=== PATIENT | male | born 1945 | race Caucasian/White ===

== ENCOUNTER 2017-05-15 13:22 | Inpatient (IN) | payer OTHER ==
--- NOTE | 2017-05-15 13:46 | EDPHY ---
H & P Smoking Status: Former smoker <HarperBryce Scotty - Last Filed: 05/15/17 15:27> <Lisa Lewis - Last Filed: 05/15/17 23:00> Time Seen by Provider: 05/15/17 13:33 HPI/ROS: Chief complaint. Bowel movement issues HPI. 71-year-old male presents emergency department with constipation and abdominal distention for 1 month. It seems to somewhat come and go. He has a laxative 2 days ago with some relief. He has occasional cramping. No vomiting. No fever. No urinary symptoms. No chest discomfort or trouble breathing. ROS Constitutional. no fever/chills, no weakness Eyes. no problems with vision ENT. no sore throat, no nasal drainage Cardiovascular. no chest pain Respiratory. no shortness of breath, no cough Abdominal. Abdominal distension without nausea vomiting. Constipation . no problems urinating MS. no calf pain/swelling, no neck/back pain, no joint pain Skin. no rash Lymph. no swollen glands Neuro. no headache, no dizziness, no difficulty walking or with speech (Bryce Saleem) Past Medical/Surgical History: Past medical history diabetes, congestive heart failure, lung surgery, hypertension (Bryce Saleem) Social History: , nonsmoker, no alcohol (Bryce Saleem) Physical Exam: General Appearance: Alert well-developed male no distress. Vital signs stable though O2 saturation 85% room air Eyes: Pupils equal and round no pallor or injection. ENT, Mouth: Mucous membranes are moist. Respiratory: There are no retractions, lungs are clear to auscultation. Cardiovascular: Regular rate and rhythm. Gastrointestinal: Abdomen is soft and nontender, no masses, bowel sounds normal. Neurological: Awake and alert, sensory and motor exams grossly normal. Skin: Warm and dry, no rashes. Musculoskeletal: Neck is supple nontender. Extremities symmetrical, full range of motion. Psychiatric: Patient is oriented X 3, there is no agitation. (Bryce Saleem) Constitutional: Initial Vital Signs Temperature (C) 36.7 C 05/15/17 13:26 Heart Rate 70 05/15/17 13:26 Respiratory Rate 20 05/15/17 13:26 Blood Pressure 151/87 H 05/15/17 13:26 O2 Sat (%) 85 L 05/15/17 13:26 O2 Delivery Mode Nasal Cannula O2 (L/minute) 3 Allergies/Adverse Reactions: No Known Allergies Allergy (Verified 05/15/17 13:23) Home Medications: Medication Instructions Recorded Amlodipine Besylate [Norvasc] 5 mg PO BID 05/15/17 Carvedilol [Coreg (*)] 25 mg PO DAILY 05/15/17 Furosemide [Lasix 20 MG (*)] 20 mg PO DAILY 05/15/17 Gabapentin [Neurontin 100 MG (*)] 100 mg PO BID 05/15/17 Gemfibrozil [Lopid 600 MG (*)] 600 mg PO BIDAC 05/15/17 Hydrochlorothiazide [HCTZ (*)] 12.5 mg PO DAILY 05/15/17 Insulin Aspart [novoLOG] 5 - 15 unit SC DAILY 05/15/17 Insulin Aspart [novoLOG] 25 unit SC DAILY@16 05/15/17 Insulin Glargine [Lantus 100 40 - 45 units SC HS 05/15/17 UNITS/ML (*)] LISINOPRIL [LISINOPRIL] 10 mg PO DAILY 05/15/17 clonIDINE [Catapres (*)] 0.1 mg PO BID 05/15/17 Medical Decision Making <Bryce Saleem S - Last Filed: 05/15/17 15:27> <Lisa Lewis - Last Filed: 05/15/17 23:00> - Diagnostics Imaging Results: Imaging Impressions Abdomen X-Ray 05/15/17 14:01 Impression: 1. Fluid-filled distended transverse colon. Gasless bowel pattern, cannot exclude small bowel obstruction. Chest X-Ray 05/15/17 14:01 Impression: Stable chest.. Abdomen/Pelvis CT 05/15/17 15:17 Impression: 1. Colonic obstruction at the level of the junction of splenic flexure with descending colon with bowel wall thickening worrisome for primary colonic malignancy. 2. Dilated colon proximal to the level of obstruction measuring up to 8 cm in diameter. 3. Multiple renal cystic-appearing structures which could be further evaluated with renal ultrasound as clinically indicated. 4. Spinal degenerative changes are noted. 5. See above report for additional findings. Results called and discussed with Lisa Lewis M.D. on 05/15/2017, at 1607 hours. The chest x-ray interpreted by me is normal Abdominal x-ray shows multiple air-fluid levels that would be consistent with small-bowel obstruction (Bryce Saleem) Procedures: IV normal saline (Bryce Saleem) ED Course/Re-evaluation: Re-evaluation at 3:15 p.m.. Patient is stable. Patient and I discussed imaging study results and the fact this appears to be small-bowel obstruction and not just constipation. Due to his elevated creatinine which is markedly more elevated than his baseline we will do a noncontrast CT of his abdomen and pelvis (Bryce Saleem) Differential Diagnosis: I considered constipation, small-bowel obstruction, abdominal aortic aneurysm ( Bryce Saleem) Other Provider: I assumed care of this patient from Dr. Saleem at change of shift, approximately 3:30 p.m.. I received a call from Dr. Joshi regarding the patient' s CT scan at 4:15 a.m.. Patient has a bowel obstruction with significantly dilated colon, up to 8 cm, with a suspicious looking lesion at the splenic flexure/descending colon junction. CT scan was explained and discussed with the patient. He understands that he needs to be admitted to the hospital. Surgical consult was obtained. 6:00 p.m.: I spoke to the hospitalist, the patient will be admitted to Dr. Toro. (Lisa Lewis) Care Turn Over: Dr. Lewis at 3:25 p.m. (Bryce Saleem) - Data Points Laboratory Results: Laboratory Results 05/15/17 13:49 05/15/17 13:49 05/15/17 05/15/17 05/15/17 13:49 13:49 13:49 WBC 7.98 10^3/uL 10^3/uL (3.80-9.50) RBC 5.13 10^6/uL 10^6/uL (4.40-6.38) Hgb 15.9 g/dL g/dL (13.7-17.5) Hct 48.5 % % (40.0-51.0) MCV 94.5 fL fL (81.5-99.8) MCH 31.0 pg pg (27.9-34.1) MCHC 32.8 g/dL g/dL (32.4-36.7) RDW 14.0 % % (11.5-15.2) Plt Count 160 10^3/uL 10^3/uL (150-400) MPV 10.3 fL fL (8.7-11.7) Neut % (Auto) 80.3 % H % (39.3-74.2) Lymph % (Auto) 8.5 % L % (15.0-45.0) Rush % (Auto) 7.3 % % (4.5-13.0) Eos % (Auto) 3.0 % % (0.6-7.6) Baso % (Auto) 0.4 % % (0.3-1.7) Nucleat RBC Rel Count 0.0 % % (0.0-0.2) Absolute Neuts (auto) 6.41 10^3/uL 10^3/uL (1.70-6.50) Absolute Lymphs (auto) 0.68 10^3/uL L 10^3/uL (1.00-3.00) Absolute Monos (auto) 0.58 10^3/uL 10^3/uL (0.30-0.80) Absolute Eos (auto) 0.24 10^3/uL 10^3/uL (0.03-0.40) Absolute Basos (auto) 0.03 10^3/uL 10^3/uL (0.02-0.10) Absolute Nucleated RBC 0.00 10^3/uL 10^3/uL (0-0.01) Immature Gran % 0.5 % % (0.0-1.1) Immature Gran # 0.04 10^3/uL 10^3/uL (0.00-0.10) Sodium 136 mEq/L mEq/L (134-144) Potassium 4.7 mEq/L mEq/L (3.5-5.2) Chloride 105 mEq/L mEq/L (97-110) Carbon Dioxide 19 mEq/l L mEq/l (22-31) Anion Gap 12 mEq/L mEq/L (8-16) BUN 81 mg/dL H mg/dL (7-23) Creatinine 2.5 mg/dL H mg/dL (0.7-1.3) Estimated GFR 26 Glucose 138 mg/dL H mg/dL (70-100) Calcium 8.9 mg/dL mg/dL (8.5-10.4) Troponin I < 0.012 ng/mL ng/mL (0-0.034) NT-Pro-B Natriuret Pep 776 pg/mL H pg/mL (0-125) Medications Given: Discontinued Medications Sodium Chloride (Ns) 1,000 mls @ 0 mls/hr IV ONCE ONE; Wide Open PRN Reason: Protocol Stop: 05/15/17 16:35 Last Admin: 05/15/17 16:48 Dose: 1,000 mls Departure <Bryce Saleem - Last Filed: 05/15/17 15:27> <Lisa Lewis - Last Filed: 05/15/17 23:00> - Departure Disposition: [facility] Inpatient Acute Clinical Impression: CKD (chronic kidney disease) Qualifiers: Chronic kidney disease stage: unspecified stage Qualified Code(s): N18.9 - Chronic kidney disease, unspecified Bowel obstruction Qualifiers: Intestinal obstruction type: unspecified Qualified Code(s): K56.60 - Unspecified intestinal obstruction Condition: Fair Report Scribed for: Lisa Lewis Report Scribed by: Estrella Domínguez Date of Report: 05/15/17 Time of Report: 18:07 <Lisa Lewis - Last Filed: 05/15/17 23:00>
[2017-05-15 14:01] LABS: % IMMATURE GRANULYOCYTES 0.5 % (0.0-1.1); ABSOLUTE IMMATURE GRANULOCYTES 0.04 10^3/uL (0.00-0.10); ADD DIFF? NO; ADD MORPH? NO; ADD SCAN? NO; ATYPICAL LYMPHOCYTE FLAG 0 (0-99); FRAGMENT RBC FLAG 0 (0-99); HEMATOCRIT 48.5 % (40.0-51.0); HEMOGLOBIN 15.9 g/dL (13.7-17.5); LEFT SHIFT FLG 0 (0-99); LIPEMIA HEMOLYSIS FLAG 80 (0-99); MEAN CELL HEMOGLOBIN CONCENTR. 32.8 g/dL (32.4-36.7); MEAN CELL VOLUME 94.5 fL (81.5-99.8); MEAN PLATELET VOLUME 10.3 fL (8.7-11.7); PLATELET CLUMPS FLAG 30 (0-99); PLATELET COUNT 160 10^3/uL (150-400); RED BLOOD CELL COUNT 5.13 10^6/uL (4.40-6.38)
[2017-05-15 14:22] LABS: ANION GAP 12 mEq/L (8-16); CALCIUM 8.9 mg/dL (8.5-10.4); CARBON DIOXIDE 19 mEq/l (22-31); CHLORIDE 105 mEq/L (97-110); CREATININE 2.5 mg/dL (0.7-1.3); GLOMERULAR FILTRATION RATE 26; GLUCOSE 138 mg/dL (70-100); POTASSIUM 4.7 mEq/L (3.5-5.2); SODIUM 136 mEq/L (134-144)
[2017-05-15] MEDS ORDERED: NS 1,000 ML IV ONE (16:34)
--- NOTE | 2017-05-15 18:24 | CPEKG ---
Heart Rate: 59 RR Interval: 1017 P-R Interval: 168 QRSD Interval: 104 QT Interval: 452 QTC Interval: 448 P [place]: 37 QRS [place]: 37 T Wave [place]: 35 EKG Severity - OTHERWISE NORMAL ECG - EKG Impression: SINUS RHYTHM EKG Impression: LOW VOLTAGE IN FRONTAL LEADS Electronically Signed By: Lisa Lewis 15-May-2017 21:21:19
[2017-05-15 18:37] LABS: TROPONIN I < 0.012 ng/mL (0-0.034)
--- NOTE | 2017-05-15 18:51 | PDGENHP ---
History Information - Allergies/Home Medication List Allergies/Adverse Reactions: No Known Allergies Allergy (Verified 05/15/17 13:23) Home Medications: Amlodipine Besylate [Norvasc] 5 mg PO BID 05/15/17 [Last Taken 05/15/17 1 tab] Carvedilol [Coreg (*)] 25 mg PO DAILY 05/15/17 [Last Taken 05/15/17] Furosemide [Lasix 20 MG (*)] 20 mg PO DAILY 05/15/17 [Last Taken 05/15/17] Gabapentin [Neurontin 100 MG (*)] 100 mg PO BID 05/15/17 [Last Taken Unknown] Gemfibrozil [Lopid 600 MG (*)] 600 mg PO BIDAC 05/15/17 [Last Taken 05/15/17 1 tab] Hydrochlorothiazide [HCTZ (*)] 12.5 mg PO DAILY 05/15/17 [Last Taken 05/15/17] Insulin Aspart [novoLOG] 5 - 15 unit SC DAILY 05/15/17 [Last Taken 05/15/17] Insulin Aspart [novoLOG] 25 unit SC DAILY@16 05/15/17 [Last Taken 05/14/17] Insulin Glargine [Lantus 100 UNITS/ML (*)] 40 - 45 units SC HS 05/15/17 [Last Taken 05/14/17] LISINOPRIL [LISINOPRIL] 10 mg PO DAILY 05/15/17 [Last Taken 05/15/17] clonIDINE [Catapres (*)] 0.1 mg PO BID 05/15/17 [Last Taken 05/15/17 1 tab] - Social History Smoking Status: Former smoker Physical Exam Temp Pulse Resp BP Pulse Ox 36.4 C 60 18 128/73 H 95 05/15/17 17:33 05/15/17 17:33 05/15/17 17:33 05/15/17 17:33 05/15/17 17:33 Lab Data & Imaging Review 05/15/17 13:49 05/15/17 13:49 WBC 7.98 10^3/uL (3.80-9.50) 05/15/17 13:49 RBC 5.13 10^6/uL (4.40-6.38) 05/15/17 13:49 Hgb 15.9 g/dL (13.7-17.5) 05/15/17 13:49 Hct 48.5 % (40.0-51.0) 05/15/17 13:49 MCV 94.5 fL (81.5-99.8) 05/15/17 13:49 MCH 31.0 pg (27.9-34.1) 05/15/17 13:49 MCHC 32.8 g/dL (32.4-36.7) 05/15/17 13:49 RDW 14.0 % (11.5-15.2) 05/15/17 13:49 Plt Count 160 10^3/uL (150-400) 05/15/17 13:49 MPV 10.3 fL (8.7-11.7) 05/15/17 13:49 Neut % (Auto) 80.3 % (39.3-74.2) H 05/15/17 13:49 Lymph % (Auto) 8.5 % (15.0-45.0) L 05/15/17 13:49 [place] % (Auto) 7.3 % (4.5-13.0) 05/15/17 13:49 Eos % (Auto) 3.0 % (0.6-7.6) 05/15/17 13:49 Baso % (Auto) 0.4 % (0.3-1.7) 05/15/17 13:49 Nucleat RBC Rel Count 0.0 % (0.0-0.2) 05/15/17 13:49 Absolute Neuts (auto) 6.41 10^3/uL (1.70-6.50) 05/15/17 13:49 Absolute Lymphs (auto) 0.68 10^3/uL (1.00-3.00) L 05/15/17 13:49 Absolute Monos (auto) 0.58 10^3/uL (0.30-0.80) 05/15/17 13:49 Absolute Eos (auto) 0.24 10^3/uL (0.03-0.40) 05/15/17 13:49 Absolute Basos (auto) 0.03 10^3/uL (0.02-0.10) 05/15/17 13:49 Absolute Nucleated RBC 0.00 10^3/uL (0-0.01) 05/15/17 13:49 Immature Gran % 0.5 % (0.0-1.1) 05/15/17 13:49 Immature Gran # 0.04 10^3/uL (0.00-0.10) 05/15/17 13:49 Sodium 136 mEq/L (134-144) 05/15/17 13:49 Potassium 4.7 mEq/L (3.5-5.2) 05/15/17 13:49 Chloride 105 mEq/L (97-110) 05/15/17 13:49 Carbon Dioxide 19 mEq/l (22-31) L 05/15/17 13:49 Anion Gap 12 mEq/L (8-16) 05/15/17 13:49 BUN 81 mg/dL (7-23) H 05/15/17 13:49 Creatinine 2.5 mg/dL (0.7-1.3) H 05/15/17 13:49 Estimated GFR 26 05/15/17 13:49 Glucose 138 mg/dL (70-100) H 05/15/17 13:49 Calcium 8.9 mg/dL (8.5-10.4) 05/15/17 13:49 Troponin I < 0.012 ng/mL (0-0.034) 05/15/17 13:49 NT-Pro-B Natriuret Pep 776 pg/mL (0-125) H 05/15/17 13:49 Assessment & Plan Assessment: Bowel obstruction (Acute) CKD (chronic kidney disease) (Acute)
[2017-05-15] MEDS ORDERED: D50W 25 GM/50 ML SYR IVP PRN (21:14)
[2017-05-15] MEDS ORDERED: ACETAMINOPHEN 325 MG TAB PO PRN (21:38)
[2017-05-15] MEDS ORDERED: TEMAZEPAM 15 MG CAP PO PRN (21:38)
[2017-05-15] MEDS ORDERED: ONDANSETRON DISINTEGRATING 4 MG TAB PO PRN (21:38)
[2017-05-15] MEDS ORDERED: ONDANSETRON 4 MG/2 ML VIAL IVP PRN (21:38)
[2017-05-15] MEDS ORDERED: NS 1,000 ML IV SCH (21:45)
[2017-05-15] MEDS: HYDROCODONE/APAP 5/325 TAB PO PRN (22:12)
--- NOTE | 2017-05-15 22:48 | GHP ---
[f rep st] HISTORY AND PHYSICAL DATE OF ADMISSION: 05/15/2017 CHIEF COMPLAINT: Constipation. HISTORY OF PRESENT ILLNESS: This is a 71-year-old man with multiple medical problems, who presents with several weeks to a month worth of GI issues. This is associated with worsening abdominal diste ntion, some constipation. He took Mag citrate a few days ago with profuse diarrhea. Before this, azra villa notes that his stools were narrow in caliber, somewhat pencil-like. He has had some nausea but no vomiting. He has had some pain with the distention, which is better with [place]. He has not had a colonoscopy in the past. He has a reported history of CHF as well as chronic kidney disease. He tells me his baseline creati nine is about 1.7. He is able to ambulate but walking a quarter mile would be very difficult. He s ometimes gets short of breath walking across the room. PAST MEDICAL/SURGICAL HISTORY: 1. History of CHF, though no echoes in our system show CHF. 2. Chronic kidney disease. Reported baseline creatinine about 1.7. 3. Hypertension. 4. Diabetes mellitus. 5. 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 6. Knee surgery. 7. CT with thoracoscopy in 2004. 8. Group A strep infection, status post debridement. 9. Cataract surgery. MEDICATIONS: Please see medication reconciliation. ALLERGIES: No known drug allergies. SOCIAL HISTORY: He lives with his . Does not drink or smoke. He quit smoking in his 40s. FAMILY HISTORY: No colon cancer. REVIEW OF SYSTEMS: 10-point Review of Systems is conducted and is negative except per HPI. PHYSICAL EXAM: VITAL SIGNS: Blood pressure 116/68, heart rate 59, respiration rate 16, saturating 88% on room air. Temperature is 36.4. GENERAL: The patient is a very pleasant 71-year-old man, wh o appears comfortable, in no acute distress. HEENT: Shows him to be normocephalic, atraumatic. CA RDIOVASCULAR: Regular rate and rhythm. He has a 2/6 systolic murmur. PULMONARY: Lungs clear to a uscultation bilaterally. He is not in any respiratory distress. ABDOMINAL: Shows him to be quite distended with relatively firm abdomen. It is not really very tender to palpation, however. SKIN: No rash. : No Rodriguez. NEUROLOGIC: Shows him to be alert and oriented x3. He is moving all ext remities. PSYCHIATRIC: Shows normal mood and affect. LABS: CBC is normal. Creatinine is 2.5, BUN is 81, bicarb is 19. BNP is 776. Troponin is negativ e. DATA: 1. I reviewed his chart. 2. I discussed this Dr. Lewis in the emergency department. 3. EKG, which I personally viewed and interpreted, shows sinus rhythm. He does not have any Q-wave s in continuous leads. Overall, it is a nonischemic EKG. 4. CT abdomen and pelvis shows colonic obstruction at the level of the splenic flexure with bowel w all thickening, dilated colon up to 8 cm. 5. Chest x-ray, which is stable. I personally viewed and interpreted this. IMPRESSION/PLAN: A 71-year-old male with multiple medical problems, presents with colon obstruction concerning for malignancy. 1. Colon obstruction: He has seen Dr. Munoz in the past. He has seen Dr. Hines here today. My understanding is that Dr. Munoz will take him to surgery for a hemicolectomy tomorrow. In terms of perioperative risk, he is certainly a high-risk for surgery, though I do not see any good options . I think he is a little dry, so I will hydrate him overnight and recheck his kidney function. We will check an echocardiogram tomorrow to evaluate his cardiac function. Make him n.p.o. after midni ght. We will control his pain with both IV and oral narcotics. 2. Chronic kidney disease: I think that he is slightly above his baseline potentially due to prere nal state. We will slowly hydrate him and recheck his creatinine in the morning. 3. Reported congestive heart failure: Last echo here in 2011 was normal. He has seen Cardiology b ut not in the recent past and I do not find any records in [place]. Will check another echocardiog guillermo. I would like this to be done prior to his operation. 4. Diabetes mellitus: I will give him low-dose glargine tonight as he will be n.p.o. for the entir e day tomorrow. He normally takes 40-45. I will also place him on sliding scale insulin. Check q. 6 glucoses. 5. Hypertension: We will hold his amlodipine for now. Continue his Coreg and morning clonidine, w ill need to decide on his afternoon clonidine. Hold his hydrochlorothiazide. 6. Hypoxia: I suspect that this is more chronic than acute. Initial chest x-ray not terribly reve aling. 7. Acidosis: Likely due to renal failure. Recheck tomorrow. 8. Code status is full. 9. Venous thromboembolism risk is high; however, I will hold Lovenox with surgery pending for vida valentin. /[id number]/MODL
[2017-05-16] MEDS: HYDROCODONE/APAP 5/325 TAB PO PRN (02:08)
--- NOTE | 2017-05-16 04:33 | GCON ---
[f rep st] CONSULTATION DATE OF CONSULTATION: 05/15/2017 CHIEF COMPLAINT: Abdominal distention. HISTORY OF PRESENT ILLNESS: 71-year-old male with complex past medical history, presents with about a month long history of worsening abdominal distention, constipation, and obstipation. Per the lissa chow's report, he really states that since his initial diagnosis with diabetes in 2005 he has had in creasing abdominal circumference acutely worsening over about the past month since that time. He st ates that his belly has always been fairly rotund but getting more distended lately. He did attempt to take some [id number]-[id number] laxatives for the past 2 days with minimal results. He did endorse h aving some fairly loose stools today after magnesium citrate last evening, but that he still continu es to have maybe every other day bowel movements, that they are loose, typically liquid, and that he is not passing as much flatus as he used to, although he continues to do so daily. He denies havin g any nausea vomiting, fevers, or chills. He does state that it feels as though his abdomen is push ing on his chest, which does make breathing sometimes difficult. He really denies having any pain a nd is here mainly because of his abdominal distention. In the emergency department, he has had mult iple imaging, including a plain film, which showed fairly dilated colon and a CT scan, which showed a worrisome stricture at the splenic flexure worrisome for possible cancer. He denies having any re cent weight loss. He denies having any blood per rectum and has never had a colonoscopy. PAST MEDICAL HISTORY: Insulin-dependent diabetes, congestive heart failure, chronic kidney disease, hypertension, and idiopathic cardiomyopathy. 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 CURRENT MEDICATIONS: Reviewed in [employer]. ALLERGIES: None. FAMILY HISTORY: No known family history of any colon cancers. SOCIAL HISTORY: Former smoker. Retired. REVIEW OF SYSTEMS: A full 10-point review was performed, and unless explicitly stated above, is oth erwise negative. PHYSICAL EXAMINATION: VITAL SIGNS: Temperature 36.4, heart rate 91, blood pressure 128/73, he is 9 5% on 3 L nasal cannula, and his respiratory rate is 18. CONSTITUTIONAL: No apparent distress, obe se. EYES: Pupils are equal, round, and reactive to light with anicteric sclerae. EARS, NOSE, MOUT H, AND THROAT: Dry mucous membranes. No oral mucosal ulcers. CV: Regular rate and rhythm. No mu rmurs appreciated. RESPIRATORY: No respiratory distress. His lungs are clear to auscultation bila terally. GI: His abdomen is distended, tympanitic. No rebound tenderness or guarding. Minimally tender. No masses appreciated. SKIN: Warm and normal color. SKIN: Full muscle strength without muscular tenderness. NEUROLOGIC: He is alert and oriented x3 without any weakness. PSYCH: Intera cting appropriately with normal affect. LYMPH: No appreciable palpable lymphadenopathy. LABORATORY DATA: Which were personally reviewed, white count of 7, H and H of 16 and 48, creatinine of 2.5, blood sugar 138. IMAGING DATA: Which was personally reviewed and interpreted include a plain film of the chest, a pl ain film of the abdomen, and a CT abdomen and pelvis. Chest x-ray, to my read, shows prominent hear t with no focal infiltrates. Abdominal x-ray shows fairly dilated colon loops without any intraperi toneal free air. CT scan of the abdomen and pelvis shows a worrisome stricture just distal to the s plenic flexure. It does not appear to be complete. No pneumoperitoneum appreciated. ASSESSMENT AND PLAN: 71-year-old male with multiple medical problems, presenting with what appears to be an acute on chronic large bowel obstruction. I had a long discussion with the patient in the emergency department today discussing his imaging, labs, and exam findings. I did tell him that it is worrisome given the fact that he has never had a colonoscopy that this likely represents a colon cancer and in my mind is that until proven otherwise. He was a little hesitant to take this diagnos is but understood that he had some worrisome imaging and exam findings. I did tell him that you kno w more than likely no matter what this was he would likely need operation as it is near obstructing, and regardless of the diagnosis of benign or malignant, will require surgical exploration and extir pation. He understood this. I have asked the medicine physicians to be involved as the patient has multiple medical problems, and I want to make sure that he is in optimal state for surgery. I did tell the patient that although he does not need emergent operative exploration tonight that he does need exploration within the next 24 hours to remove this near obstructing lesion, and that gives us some time to make sure that he is medically optimized prior to doing so. He understands this. We w ill plan to proceed with admission, n.p.o. Status, gentle hydration tonight with planned exploration in the operating room tomorrow. /[id number]/MODL
[2017-05-16 05:11] LABS: % IMMATURE GRANULYOCYTES 0.4 % (0.0-1.1); ABSOLUTE IMMATURE GRANULOCYTES 0.02 10^3/uL (0.00-0.10); ADD DIFF? NO; ADD MORPH? NO; ADD SCAN? NO; ATYPICAL LYMPHOCYTE FLAG 0 (0-99); FRAGMENT RBC FLAG 0 (0-99); HEMATOCRIT 44.5 % (40.0-51.0); HEMOGLOBIN 14.4 g/dL (13.7-17.5); LEFT SHIFT FLG 0 (0-99); LIPEMIA HEMOLYSIS FLAG 80 (0-99); MEAN CELL HEMOGLOBIN 30.7 pg (27.9-34.1); MEAN CELL HEMOGLOBIN CONCENTR. 32.4 g/dL (32.4-36.7); MEAN CELL VOLUME 94.9 fL (81.5-99.8); MEAN PLATELET VOLUME 9.9 fL (8.7-11.7); PLATELET CLUMPS FLAG 0 (0-99); PLATELET COUNT 126 10^3/uL (150-400); RED BLOOD CELL COUNT 4.69 10^6/uL (4.40-6.38)
[2017-05-16 05:27] LABS: ALANINE AMINOTRANSFERASE 32 IU/L (21-72); ALKALINE PHOSPHATASE 70 IU/L (38-126); ANION GAP 10 mEq/L (8-16); ASPARTATE AMINOTRANSFERASE 20 IU/L (17-59); BILIRUBIN,TOTAL 0.7 mg/dL (0.1-1.4); CALCIUM 8.6 mg/dL (8.5-10.4); CARBON DIOXIDE 18 mEq/l (22-31); CHLORIDE 111 mEq/L (97-110); CREATININE 2.2 mg/dL (0.7-1.3); GLOMERULAR FILTRATION RATE 30; GLUCOSE 114 mg/dL (70-100); POTASSIUM 4.5 mEq/L (3.5-5.2); SODIUM 139 mEq/L (134-144); TOTAL PROTEIN 5.8 g/dL (6.3-8.2)
[2017-05-16] MEDS: GABAPENTIN 100 MG CAP PO SCH ×2 (09:10→21:58)
[2017-05-16] MEDS: CARVEDILOL 25 MG TAB PO SCH (09:11)
[2017-05-16] MEDS: LISINOPRIL 5 MG TAB PO SCH (09:11)
--- NOTE | 2017-05-16 09:48 | ECHO ---
[id number] + + [address] : : [place] [address] : : [phone] + Adult Echocardiographic Report + -------+ :Name: ALDEN BLANCHARD GStudy Date: 05/16/2017 08:04 AM : : Hospital Admission Number: [id number] Locati on: 253: :: 1945 Gender: Male Height: 71 in : :Age: 71 yrs Race: WH Weight: 256 lb : :Reason For Study: Eval LV Fx : : BSA: 2.3 meter s2 : :History: Bowel obstruction, Kidney disease : + -------+ MMode/2D Measurements \T\ Calculations IVSd: 1.2 cm LVIDd: 5.1 cm FS: 41.6 % Ao root diam: 2.9 cm LVPWd: 1.6 cm LVIDs: 3.0 cm EDV(Teich): 123.0 ml ACS: 2.1 cm ESV(Teich): 34.1 ml EF(Teich): 72.3 % Normal Measurement Values: + + :LVIDd (3.5-5.7cm) IVSd (0.6-1.1cm) LVPWd (0.6-1.1cm) Aortic Root (2.0-3.7cm)Left Atrium (1.5-4.0cm): :LV Vol(d) (76-115ml) LV Vol(s) (29-48ml) Ejec Fraction (50-65%)PV Yohan (0.6- 1.2m/s) TV Yohan (0.4-1.0m/s) : :MV E Yohan (0.8-1.0m/s)MV A Yohan (0.3-1.0m/s)LVOT Yohan (0.7-1.2m/s) Asc Ao Yohan ( 0.9-1.8m/s) : + + Doppler Measurements \T\ Calculations MV E max yohan: Ao V2 max: LV V1 max: PA V2 max: 65.6 cm/sec 129.0 cm/sec 74.5 cm/sec 81.4 cm/sec MV A max yohan: Ao max P.7 mmHg LV V1 max PG: PA max P.4 cm/sec 2.2 mmHg 2.7 mmHg MV E/A: 0.75 Left Ventricle The left ventricle is normal in size. There is mild to moderate concentric left ventricular hypertrophy. The left ventricular ejection fraction is normal. There is Doppler evidence for diastolic dysfunction. Ejection Fraction = 72%. The left ventricular wall motion is normal. Right Ventricle The right ventricle is normal in size and function. Atria The left atrial size is normal. Right atrial size is normal. Mitral Valve The mitral valve is normal in structure and function. There is no mitral valve stenosis. There is no mitral regurgitation noted. Tricuspid Valve Normal tricuspid valve. There is trace tricuspid regurgitation. Right ventricular systolic pressure is normal. Aortic Valve The aortic valve is normal in structure and function. There is no aortic stenosis. There is no aortic insufficiency. Pulmonic Valve The pulmonic valve is normal in structure and function. There is no pulmonic valvular regurgitation. Great Vessels The aortic root is normal size. Pericardium/Pleural There is no pericardial effusion. Conclusion A complete two-dimensional transthoracic echocardiogram was performed (2D, M-mode, Doppler and color flow Doppler). There is mild to moderate concentric left ventricular hypertrophy. The left ventricular ejection fraction is normal. There is Doppler evidence for diastolic dysfunction. Ejection Fraction = 72%. The left ventricular wall motion is normal. The right ventricle is normal in size and function. The left atrial size is normal. Right atrial size is normal. The mitral valve is normal in structure and function. There is trace tricuspid regurgitation. Right ventricular systolic pressure is normal. The aortic valve is normal in structure and function. There is no pericardial effusion. Final Reading Physician: Merline Katz signed on 05/16/2017 09:47 AM Ordering Physician: Stone Toor Performed By: Alonzo Lee, CS
[2017-05-16] MEDS: INSULIN LISPRO 100 UNIT/ML SC SCH ×4 (10:51→18:44)
[2017-05-16] MEDS ORDERED: BUPIVACAINE/EPI 0.25% 30 ML SDV ONE (11:42)
--- NOTE | 2017-05-16 11:53 | PDANEPAE ---
ANE History of Present Illness large bowel obstruction ANE Past Medical History - Cardiovascular History Hx Hypertension: Yes Hx CHF / Valvular Disease: Yes - Pulmonary History Hx COPD: No Hx Asthma/Reactive Airway Disease: No Hx Recent Upper Respiratory Infection: No Hx Oxygen in Use at Home: No - Endocrine History Hx Diabetes: Yes - Chronic Pain History Chronic Pain: Yes ANE Review of Systems - Exercise capacity METS (RN): 2 METS ANE Patient History - Allergies Allergies/Adverse Reactions: No Known Allergies Allergy (Verified 05/15/17 13:23) - Home Medications Home medications: home medication list seen and reviewed Home Medications: Amlodipine Besylate [Norvasc] 5 mg PO BID 05/15/17 [Last Taken 05/15/17 1 tab] Carvedilol [Coreg (*)] 25 mg PO DAILY 05/15/17 [Last Taken 05/15/17] Furosemide [Lasix 20 MG (*)] 20 mg PO DAILY 05/15/17 [Last Taken 05/15/17] Gabapentin [Neurontin 100 MG (*)] 100 mg PO BID 05/15/17 [Last Taken Unknown] Gemfibrozil [Lopid 600 MG (*)] 600 mg PO BIDAC 05/15/17 [Last Taken 05/15/17 1 tab] Hydrochlorothiazide [HCTZ (*)] 12.5 mg PO DAILY 05/15/17 [Last Taken 05/15/17] Insulin Aspart [novoLOG] 5 - 15 unit SC DAILY 05/15/17 [Last Taken 05/15/17] Insulin Aspart [novoLOG] 25 unit SC DAILY@16 05/15/17 [Last Taken 05/14/17] Insulin Glargine [Lantus 100 UNITS/ML (*)] 40 - 45 units SC HS 05/15/17 [Last Taken 05/14/17] LISINOPRIL [LISINOPRIL] 10 mg PO DAILY 05/15/17 [Last Taken 05/15/17] clonIDINE [Catapres (*)] 0.1 mg PO BID 05/15/17 [Last Taken 05/15/17 1 tab] - NPO status NPO Since - Liquids (Date): 05/16/17 NPO Since - Liquids (Time): 09:25 NPO Since - Solids (Date): 05/15/17 NPO Since - Solids (Time): 21:40 - Anes Hx Anes Hx: no prior problems - Smoking Hx Smoking Status: Former smoker - Family Anes Hx Family Anes Hx: none ANE Labs/Vital Signs - Labs Result Diagrams: 05/16/17 04:45 05/16/17 04:45 - Vital Signs Blood Pressure: 136/67 Heart Rate: 62 Respiratory Rate: 16 O2 Sat (%): 93 Height: 180.34 cm Weight: 116.12 kg ANE Physical Exam - Airway Neck exam: FROM Mallampati Score: Class 2 Mouth exam: normal dental/mouth exam - Pulmonary Pulmonary: no respiratory distress - Cardiovascular Cardiovascular: no murmur, rub, or gallop - ASA Status ASA Status: IV ANE Anesthesia Plan Anesthesia Plan: general endotracheal anesthesia (discussed epidural - patient would like to defer)
[2017-05-16] MEDS ORDERED: MIDAZOLAM 2 MG/2 ML VIAL IVP ONE (11:55)
[2017-05-16] MEDS ORDERED: MIDAZOLAM 2 MG/2 ML VIAL ONE (11:57)
[2017-05-16] MEDS ORDERED: fentaNYL 100 MCG/2 ML INJ ONE ×4 (12:00→16:12)
[2017-05-16] MEDS ORDERED: HYDROmorphONE/DILAUDID 2 MG/ML INJ ONE (12:00)
[2017-05-16] MEDS ORDERED: NS 1,000 ML IV ONE (12:08)
[2017-05-16] MEDS ORDERED: ERTAPENEM 1 GM in NS 100 ML IV ONE (12:13)
--- NOTE | 2017-05-16 12:19 | PDHPUP ---
History & Physical Update H&P update statement: This history and physical update is based on an assessment of the patient which was completed after admission or registration (within 24 hours), but prior to the surgery/procedure. H&P update: H&P reviewed & patient examined, no change in patient's condition since H&P completed
[2017-05-16] MEDS ORDERED: BACITRACIN 50,000 UNITS/10 ML SYR IRR ONE (14:19)
--- NOTE | 2017-05-16 15:18 | POSTOPPROG ---
Post Op Note Date of Operation: 05/16/17 Surgeon: Jason Hines Lap Cutter: MD Bobby Anesthesiologist: Bethany Anesthesia: GET(General Endotracheal) Pre-op Diagnosis: obstructing colon mass, splenic flexure Post-op Diagnosis: same Procedure: ex-lap, splenic flexure mobilization, L colectomy Findings: tight stricture, appeared malignant. No mets identified. Side to side mosis Inf/Abcess present in the surg proc area at time of surgery?: No EBL: 100-500 Total fluids administered: 3000cc Bacitracin irrigant Specimen(s): L colon
[2017-05-16] MEDS ORDERED: NALOXONE HCL 0.4 MG/ML INJ IVP PRN (15:19)
--- NOTE | 2017-05-16 15:24 | POSTANESTH ---
Post Anesthetic Evaluation Cardiovascular Status: Normal, Stable Respiratory Status: Normal, Stable Level of Consciousness/Mental Status: Can Participate in Eval Pain Control: Adequate, Prn Tx Ordered Nausea/Vomiting Control: Adequate, Prn Tx Ordered Complications Possibly Related to Anesthesia: None Noted
[2017-05-16] MEDS: fentaNYL 100 MCG/2 ML INJ IVP PRN ×6 (15:39→16:36)
--- NOTE | 2017-05-16 16:33 | HOSPPROG ---
Hospitalist Progress Note Assessment/Plan: 71 yo male presenting with abdominal distention and constipation, found to have nearly obstructing colon mass. Bronson-colectomy today. Pt in OR all day and no face to face visit by me. Reviewed chart. Colon mass - per op note, appeared malignant. Will need oncology consult. H/O HF - nl EF on echo. CKD - baseline Cr 1.7. Was 2.5 on admission, down to 2.2 this am after IV hydration overnight. Check ua, urine pro:cr Metabolic acidosis - suspect secondary to CKD. Start oral NaHCO3. DM - bg's around 100 on low dose lantus and SSI. Resume outpt lantus dose when eating better. Hypertension - fairly well controlled, cont coreg, lisinopril, clonidine. Holding HCTZ. Hypoxemia - ?chronic. Full code DVT PPLX - start Lovenox when 24 hrs post-op and ok with surg. SCD's for now Dispo - cont inpt Subjective: Pt in OR all day. Objective: Vital Signs Temp Pulse Resp BP Pulse Ox 36.0 C 64 16 141/60 H 93 05/16/17 15:29 05/16/17 12:19 05/16/17 12:19 05/16/17 12:19 05/16/17 12:19 Laboratory Results 05/16/17 04:45 05/16/17 04:45 05/15/17 05/16/17 05/17/17 05:59 05:59 05:59 Intake Total 1000 Output Total 950 Balance 50 ICD10 Worksheet Patient Problems: Problems Problem Status Onset Bowel obstruction Acute CKD (chronic kidney disease) Acute
[2017-05-16] MEDS: HYDROmorphONE/DILAUDID 6 MG/30 ML PCA IV PRN (17:28)
[2017-05-16] MEDS: D5W NS 1,000 ML IV SCH (18:21)
[2017-05-16 18:50] LABS: COLOR YELLOW; LEUKOCYTE ESTERASE,URINE NEGATIVE (NEGATIVE); NITRITE,URINE NEGATIVE (NEGATIVE)
[2017-05-16 19:02] LABS: BACTERIA 1+ /hpf (NONE SEEN); MUCUS TRACE /lpf (NONE-1+); RBC,URINE 15-25 /hpf (0-3)
[2017-05-16 19:16] LABS: RANDOM URINE PROTEIN 86 mg/dL (0-11)
[2017-05-16] MEDS ORDERED: INSULIN GLARGINE 100 UNITS/ML SYRINGE SC SCH (21:00)
[2017-05-17] MEDS: INSULIN LISPRO 100 UNIT/ML SC SCH ×4 (02:01→17:53)
[2017-05-17] MEDS: D5W NS 1,000 ML IV SCH (05:22)
--- NOTE | 2017-05-17 07:47 | SOAPPROG ---
SOAP Progress Note Assessment/Plan: Assessment/Plan: - 71 M POD#1 s/p ex-lap, colectomy - Pain controlled with DPCA, cont this. Otherwise neuro intact - On supplemental O2 c NC, wean as tolerates - HDS - Abdomen soft, aTTP, incision covered with clean dressing from OR, will change tomorrow - UOP has been adequate, met panel pending this AM - Hb pending, needs LMWH proph - Dispo: OOBTC and ambulate. Start sips of chips and clears today. 05/17/17 07:45 Subjective: sleepy, pain is controlled. Denies nausea Objective: Vital Signs Temp Pulse Resp BP Pulse Ox 36.5 C 77 17 102/45 L 76 L 05/17/17 04:00 05/17/17 06:00 05/17/17 06:00 05/17/17 06:00 05/17/17 06:00 Laboratory Results 05/16/17 04:45 05/16/17 04:45 05/16/17 05/17/17 05/18/17 05:59 05:59 05:59 Intake Total 1000 4400 Output Total 950 835 Balance 50 3565 ICD10 Worksheet Patient Problems: Problems Problem Status Onset Bowel obstruction Acute CKD (chronic kidney disease) Acute
[2017-05-17 08:26] LABS: HEMATOCRIT 44.5 % (40.0-51.0); HEMOGLOBIN 14.5 g/dL (13.7-17.5); MEAN CELL HEMOGLOBIN 31.1 pg (27.9-34.1); MEAN CELL HEMOGLOBIN CONCENTR. 32.6 g/dL (32.4-36.7); MEAN CELL VOLUME 95.5 fL (81.5-99.8); RED BLOOD CELL COUNT 4.66 10^6/uL (4.40-6.38); RED CELL DISTRIBUTION WIDTH 14.2 % (11.5-15.2)
[2017-05-17] MEDS: LISINOPRIL 5 MG TAB PO SCH (08:34)
[2017-05-17] MEDS: GABAPENTIN 100 MG CAP PO SCH ×2 (08:34→20:29)
[2017-05-17] MEDS: ERTAPENEM 1 GM in NS 100 ML IV SCH (08:39)
[2017-05-17 09:58] LABS: ANION GAP 8 mEq/L (8-16); CALCIUM 8.6 mg/dL (8.5-10.4); CARBON DIOXIDE 19 mEq/l (22-31); CHLORIDE 116 mEq/L (97-110); CREATININE 2.1 mg/dL (0.7-1.3); GLOMERULAR FILTRATION RATE 31; GLUCOSE 196 mg/dL (70-100); POTASSIUM 5.4 mEq/L (3.5-5.2); SODIUM 143 mEq/L (134-144)
--- NOTE | 2017-05-17 10:12 | HOSPPROG ---
Hospitalist Progress Note Assessment/Plan: 71 yo male presenting with abdominal distention and constipation, found to have nearly obstructing colon mass. Bronson-colectomy today. Pt in OR all day and no face to face visit by me. Reviewed chart. Colon mass - per op note, appeared malignant. Path pending. Will need oncology consult, surgery to pursue. H/O HF - nl EF on echo. Appears euvolemic. On IVF's while NPO. Watch volume status closely. HERBIE / CKD - baseline Cr 1.7. Was 2.5 on admission, down to 2.1 this am after IV hydration. Spot urine pro:Cr ratio 934, non-nephrotic range proteinuria. Hyperkalemia - K 5.4 this am in setting of elevated Cr and acidosis. Given NaHCO3. Will recheck this afternoon. Hold Lisinopril for now. Metabolic acidosis - suspect secondary to CKD. Start oral NaHCO3. DM - Currently NPO, D5 added to fluids due to lowish bg's. Holding Lantus while NPO, will resume when eating better. Q6H bg's and SSI coverage. Hypertension - fairly well controlled, cont coreg, clonidine. Holding HCTZ with HERBIE. Holding Lisinopril due to elevated potassium. Hypoxemia - ?chronic. Likely has poor diaphragm excursion with post-op pain. He has apparently been recommended to have home O2 in the past and has declined. On 3 LPM. Wean as able. Full code DVT PPLX - MEDARDO Dispo - cont inpt Subjective: When asked how he is doing, pt states "I'm alive". He complains of some abdominal pain around incision. No fevers. No N/V. No BM. Objective: Vital Signs Temp Pulse Resp BP Pulse Ox 37.1 C 80 20 111/44 L 90 L 05/17/17 08:00 05/17/17 08:00 05/17/17 08:00 05/17/17 08:00 05/17/17 08:00 Laboratory Results 05/17/17 08:17 05/16/17 05/17/17 05/18/17 05:59 05:59 05:59 Intake Total 1000 4400 Output Total 950 835 Balance 50 3565 - Physical Exam Constitutional: no apparent distress Eyes: PERRL Ears, Nose, Mouth, Throat: moist mucous membranes Cardiovascular: regular rate and rhythym Respiratory: no respiratory distress, reduced air movement Gastrointestinal: other (soft, mild distention, appropriate TTP, no r/r/g, absent BS) Skin: warm Musculoskeletal: full muscle strength Neurologic: AAOx3 Psychiatric: interacting appropriately ICD10 Worksheet Patient Problems: Problems Problem Status Onset Bowel obstruction Acute CKD (chronic kidney disease) Acute
[2017-05-17] MEDS ORDERED: D5W 1/2 NS 1,000 ML IV SCH (10:15)
[2017-05-17] MEDS ORDERED: SODIUM BICARBONATE 50 MEQ/50 ML SYR IVP ONE ×2 (10:15→19:00)
[2017-05-17] MEDS: CARVEDILOL 25 MG TAB PO SCH (11:13)
[2017-05-17] MEDS ORDERED: HEPARIN 20,000 UNIT/ML VIAL SC SCH (12:12)
[2017-05-17] MEDS: HYDROmorphONE/DILAUDID 6 MG/30 ML PCA IV PRN (12:27)
--- NOTE | 2017-05-17 14:08 | GOP ---
[f rep st] OPERATIVE REPORT DATE OF OPERATION: 05/16/2017 SURGEON: Jason Hines MD JUMPBASTING COLLAR BASTER: Deepthi Rosales MD, who is requested for timely completion of this case. ANESTHESIA: General endotracheal. ANESTHESIOLOGIST: Dr. Mannie Sims. PREOPERATIVE DIAGNOSIS: Near-obstructing colon mass. POSTOPERATIVE DIAGNOSIS: Near-obstructing colon mass. PROCEDURE PERFORMED: 1. Exploratory laparotomy. 2. Mobilization of splenic flexure. 3. Partial left-sided left colectomy with [id number] functional end-to-end anastomosis. FINDINGS: Mass in the left colon. Did appear malignant. Successfully mobilized. Removed with healthy margin. [id number] functional end-to-end anastomosis performed. Common colotomy, hand-sewn. SPECIMENS: Left colon. ESTIMATED BLOOD LOSS: 250 mL. DESCRIPTION OF PROCEDURE: The patient was greeted in the preoperative suite. Once again, risks, benefits, and alternatives were discussed. Consent was signed. He was then brought back to the operative suite, placed on the OR table in a supine position. Antibiotics were given on-call to the operating room. After successful induction of general anesthesia, a World Health Organization time-out was performed. The patient's abdomen was then prepped and draped in typical sterile fashion. I entered the abdomen via a vertical midline incision. I carried this down through the subcutaneous tissue and entered the abdomen sharply. The incision was then increased to just below the xiphoid and just below the umbilicus. I eviscerated the small bowel and set it off to the side. I turned my attention towards the colon. I could feel the mass in question, which was consistent with preoperative imaging. I turned my attention toward mobilizing the descending colon via the white line of Toldt up to the splenic flexure. In the same fashion, I mobilized the proximal transverse colon off the greater omentum , entering the lesser sac. After this was done, again, the left colon was fairly densely adherent in the left upper quadrant. I divided the transverse colon proximally with a single fire of the Endo-DELLA 75 blue load stapler. I divided the mesentery lateral to this all the way up into the splenic flexure. The same was done distally. I selected a site on the descending colon successfully divided it and divided the mesentery up to it using the LigaSure energy device. It was successfully amputated from its retroperitoneal attachments and passed off the back table. Inspection showed that there was a focal mass consistent with imaging, which was malignant appearing. I turned my attention back toward the patient's abdomen. Hemostasis was noted to be excellent. There were some small bleeders in the left upper quadrant which were controlled successfully with pressure. I turned my attention now toward creating my anastomosis. I brought the 2 pieces of large bowel together and they laid together in a [id number] fashion without any undue tension and appeared to have good blood supply. In a [id number] fashion, I created a common colotomy with a single fire with the DELLA 75 blue-load stapler. I closed the common colotomy using a running 3-0 PDS suture which was oversewn with interrupted 3-0 Vicryl. All staple lines were oversewn in a Lembert-type fashion with 3-0 Vicryl sutures. My anastomosis was noted to be widely patent and hemostatic. There was stool spillage during the creation of the anastomosis which was controlled for the most part with surgical towels. I allowed the anastomosis to lay back in the patient's abdominal cavity. Again, no undue tension or kinks were identified. I irrigated the abdomen with 4 L normal saline which was impregnated with bacitracin. After successful irrigation, I laid the omentum over the anastomosis. Once again, checked it and it appeared to be clean, dry, intact, and widely open. I turned my attention toward closing. The fascia was closed with #1 PDS suture , noting excellent fascial reapproximation. The subcutaneous tissue was irrigated once again with warm normal saline. Gloves were changed prior to doing all of my sterile closing procedures. After that was done, I closed the skin with candida through which Telfa amer[place] were placed. Sterile dressing was placed. The patient was then extubated in the operative suite and taken to the PACU in satisfactory condition. SURGEON: Jason Hines MD DRAINS: None. /[id number]/MODL MTDD
[2017-05-17] MEDS ORDERED: ENOXAPARIN 40 MG/0.4 ML SYR SC SCH (15:00)
[2017-05-17] MEDS ORDERED: SODIUM BICARBONATE 650 MG TAB PO SCH (16:00)
[2017-05-17] MEDS: HEPARIN 5,000 UNIT/0.5 ML SYR SC SCH ×2 (16:29→20:29)
[2017-05-17 18:49] LABS: POTASSIUM 5.8 mEq/L (3.5-5.2)
[2017-05-17] MEDS ORDERED: CALCIUM GLUCONATE 50 ML IV ONE (18:56)
[2017-05-17] MEDS ORDERED: INSULIN REGULAR HUMAN 100 UNIT/ML IVP ONE (18:57)
[2017-05-17] MEDS ORDERED: D50W 25 GM/50 ML SYR IVP ONE (18:58)
[2017-05-17] MEDS: SODIUM BICARBONATE 50 MEQ in D5W 1,000 ML IV SCH (20:28)
[2017-05-17 23:16] LABS: ANION GAP 7 mEq/L (8-16); CALCIUM 8.6 mg/dL (8.5-10.4); CARBON DIOXIDE 22 mEq/l (22-31); CHLORIDE 108 mEq/L (97-110); CREATININE 2.4 mg/dL (0.7-1.3); GLOMERULAR FILTRATION RATE 27; GLUCOSE 123 mg/dL (70-100); POTASSIUM 5.1 mEq/L (3.5-5.2); SODIUM 137 mEq/L (134-144)
[2017-05-18] MEDS: INSULIN LISPRO 100 UNIT/ML SC SCH ×4 (00:26→17:22)
[2017-05-18 05:16] LABS: HEMATOCRIT 41.1 % (40.0-51.0); HEMOGLOBIN 13.5 g/dL (13.7-17.5); MEAN CELL HEMOGLOBIN 31.5 pg (27.9-34.1); MEAN CELL HEMOGLOBIN CONCENTR. 32.8 g/dL (32.4-36.7); RED BLOOD CELL COUNT 4.28 10^6/uL (4.40-6.38); RED CELL DISTRIBUTION WIDTH 14.4 % (11.5-15.2)
[2017-05-18 05:36] LABS: ANION GAP 7 mEq/L (8-16); CALCIUM 8.8 mg/dL (8.5-10.4); CARBON DIOXIDE 22 mEq/l (22-31); CHLORIDE 110 mEq/L (97-110); CREATININE 2.2 mg/dL (0.7-1.3); GLOMERULAR FILTRATION RATE 30; GLUCOSE 141 mg/dL (70-100); SODIUM 139 mEq/L (134-144)
[2017-05-18] MEDS: HEPARIN 5,000 UNIT/0.5 ML SYR SC SCH ×4 (05:52→21:08)
[2017-05-18] MEDS: SODIUM BICARBONATE 50 MEQ in D5W 1,000 ML IV SCH (05:52)
[2017-05-18] MEDS: ERTAPENEM 1 GM in NS 100 ML IV SCH (10:00)
[2017-05-18] MEDS: GABAPENTIN 100 MG CAP PO SCH ×2 (10:00→21:08)
--- NOTE | 2017-05-18 15:33 | HOSPPROG ---
Hospitalist Progress Note Assessment/Plan: 71 yo male presenting with abdominal distention and constipation, found to have nearly obstructing colon mass. Colon mass - s/p gloria-colectomy POD #2. Per op note, appeared malignant. Path pending. Will need oncology consult, surgery to pursue. HERBIE / CKD - baseline Cr 1.7. Was 2.5 on admission, down to 2.2. Spot urine pro :Cr ratio 934, non-nephrotic range proteinuria. Hyperkalemia - K up to 5.8 yesterday. Unable to give kayexalate po and deferred rectal dose given recent colectomy. He received calc gluc, insulin/ dextrose, bicarb drip overnight. K down to 5 today. Hold Lisinopril for now. Metabolic acidosis - suspect secondary to CKD. Improved on bicarb drip. Will start oral bicarb. DM - Currently NPO, D5 added to fluids due to lowish bg's. Holding Lantus while NPO, will resume when eating better. Q6H bg's and SSI coverage. Hypertension - Had some hypotension, better today. Resume Coreg. Add back Clonidine as indicated. Holding HCTZ with HERBIE. Holding Lisinopril due to elevated potassium. Hypoxemia - ?chronic. Likely has poor diaphragm excursion with post-op pain. He has apparently been recommended to have home O2 in the past and has declined. On 3 LPM. Wean as able. H/O HF - nl EF on echo. LE edema noted, reportedly better than baseline. On IVF's while NPO, rate reduced to 75/hr. Watch volume status closely, follow I&O 's, daily weights. May need diuresis. Full code DVT PPLX - MEDARDO Dispo - cont inpt Subjective: Pt doing ok. Up in chair. Pain 4/10. No N/V. +flatus, no BM. No fevers. Objective: Vital Signs Temp Pulse Resp BP Pulse Ox 37.1 C 81 16 152/65 H 96 05/18/17 11:37 05/18/17 14:00 05/18/17 14:00 05/18/17 14:00 05/18/17 14:00 Laboratory Results 05/18/17 04:50 05/18/17 04:50 05/17/17 05/18/17 05/19/17 05:59 05:59 05:59 Intake Total 4400 2250 Output Total 835 850 800 Balance 3565 1400 -800 - Physical Exam Constitutional: no apparent distress Eyes: PERRL Ears, Nose, Mouth, Throat: moist mucous membranes Cardiovascular: regular rate and rhythym Respiratory: no respiratory distress, clear to auscultation Gastrointestinal: other (soft, distended, hypoactive bowel tones, mild TTP, no r /r/g) Skin: warm Musculoskeletal: full muscle strength Neurologic: AAOx3 Psychiatric: interacting appropriately ICD10 Worksheet Patient Problems: Problems Problem Status Onset Bowel obstruction Acute CKD (chronic kidney disease) Acute
[2017-05-18] MEDS: CARVEDILOL 25 MG TAB PO SCH (16:26)
[2017-05-18] MEDS: SODIUM BICARBONATE 650 MG TAB PO SCH ×2 (16:26→21:08)
[2017-05-19] MEDS: INSULIN LISPRO 100 UNIT/ML SC SCH ×4 (00:15→17:57)
[2017-05-19] MEDS: HYDROCODONE/APAP 5/325 TAB PO PRN ×2 (05:05→21:40)
[2017-05-19] MEDS: HEPARIN 5,000 UNIT/0.5 ML SYR SC SCH ×3 (05:05→21:40)
[2017-05-19 05:49] LABS: ANION GAP 9 mEq/L (8-16); CALCIUM 8.7 mg/dL (8.5-10.4); CARBON DIOXIDE 23 mEq/l (22-31); CHLORIDE 109 mEq/L (97-110); CREATININE 1.7 mg/dL (0.7-1.3); GLOMERULAR FILTRATION RATE 40; GLUCOSE 123 mg/dL (70-100); POTASSIUM 4.7 mEq/L (3.5-5.2); SODIUM 141 mEq/L (134-144)
[2017-05-19] MEDS: ERTAPENEM 1 GM in NS 100 ML IV SCH (09:39)
[2017-05-19] MEDS: GABAPENTIN 100 MG CAP PO SCH ×2 (09:41→21:40)
[2017-05-19] MEDS: CARVEDILOL 25 MG TAB PO SCH (09:41)
[2017-05-19] MEDS: SODIUM BICARBONATE 650 MG TAB PO SCH (09:41)
[2017-05-19] MEDS ORDERED: ENOXAPARIN 40 MG/0.4 ML SYR SC SCH (10:45)
[2017-05-19] MEDS ORDERED: oxyCODONE IR 5 MG TAB PO PRN (10:46)
--- NOTE | 2017-05-19 12:02 | SOAPPROG ---
[facility] Progress Note Assessment/Plan: Assessment/Plan: - 71 M POD#1 s/p ex-lap, colectomy - Pain controlled, we will transition from [employer] to oral narcotics - still in a fair amount of supplemental oxygen, will wean as tolerates. Anticipate he will need home oxygen on discharge - HDS - abdomen soft, incision clean dry and intact, some bowel sounds, passing gas. Will give finger foods today. - urinating appropriately, kidney function improving - hemoglobin stable, low-molecular weight heparin prophylaxis - Dispo: Patient is eager to go home, has denied any home services at this point, needs to have more robust bowel function and wean off oxygen and IV narcotics. Anticipate home in the next 24-48 hours. I discussed the patient's pathology at length with him and his yesterday at bedside 05/17/17 07:45 05/19/17 12:01 05/19/17 12:02 Objective: Vital Signs Temp Pulse Resp BP Pulse Ox 36.4 C 68 22 H 128/64 H 92 05/19/17 11:17 05/19/17 11:17 05/19/17 11:17 05/19/17 11:17 05/19/17 11:17 Laboratory Results 05/18/17 04:50 05/19/17 04:53 05/18/17 05/19/17 05/20/17 05:59 05:59 05:59 Intake Total 2250 100 Output Total 850 1750 Balance 1400 -1650 ICD10 Worksheet Patient Problems: Problems Problem Status Onset Bowel obstruction Acute CKD (chronic kidney disease) Acute
--- NOTE | 2017-05-19 14:47 | HOSPPROG ---
Hospitalist Progress Note Assessment/Plan: * Colon cancer s/p resection, near obstructing mass -advance diet -eventual oncology consult * Acute on chronic kidney disease - now back to baseline creatinine 1.7 -continue to hold ACEI/diuretics * Hyperkalemia - resolved -hold ACEI * DM II -restart insulin at half dose * HTN - BP still lower than baseline -continue coreg - resume other BP meds as indicated * Hypoxia - possible chronic -IS, recheck CXR Subjective: passing gas, anxious to advance diet. NO pain Objective: Vital Signs Temp Pulse Resp BP Pulse Ox 36.4 C 68 22 H 128/64 H 92 05/19/17 11:17 05/19/17 11:17 05/19/17 11:17 05/19/17 11:17 05/19/17 11:17 Laboratory Results 05/18/17 04:50 05/19/17 04:53 05/18/17 05/19/17 05/20/17 05:59 05:59 05:59 Intake Total 2250 100 Output Total 850 1750 Balance 1400 -[address] - obstructing mass at splenic flexure CXR viewed, my personal interpretation is - negative d/w DR. Hines - angel to advance diet and DC dilaudid linux systems administrator - Physical Exam Constitutional: no apparent distress, appears nourished, not in pain Cardiovascular: regular rate and rhythym, no murmur, rub, or gallop Respiratory: no respiratory distress, no rales or rhonchi, clear to auscultation Gastrointestinal: normoactive bowel sounds, soft, non-tender abdomen, no palpable masses Skin: no rashes or abrasions, no fluctuance, no induration Neurologic: AAOx3, sensation intact bilaterally Psychiatric: interacting appropriately, not anxious, not encephalopathic, thought process linear ICD10 Worksheet Patient Problems: Problems Problem Status Onset Bowel obstruction Acute CKD (chronic kidney disease) Acute
[2017-05-19] MEDS: GEMFIBROZIL 600 MG TAB PO SCH (17:56)
[2017-05-19] MEDS ORDERED: INSULIN GLARGINE 100 UNITS/ML SYRINGE SC SCH (21:00)
[2017-05-20] MEDS: INSULIN LISPRO 100 UNIT/ML SC SCH ×4 (00:52→20:20)
[2017-05-20 05:17] LABS: ANION GAP 7 mEq/L (8-16); CALCIUM 8.8 mg/dL (8.5-10.4); CARBON DIOXIDE 25 mEq/l (22-31); CHLORIDE 111 mEq/L (97-110); CREATININE 1.6 mg/dL (0.7-1.3); GLOMERULAR FILTRATION RATE 43; GLUCOSE 130 mg/dL (70-100); POTASSIUM 4.9 mEq/L (3.5-5.2); SODIUM 143 mEq/L (134-144)
[2017-05-20] MEDS: HEPARIN 5,000 UNIT/0.5 ML SYR SC SCH ×3 (05:21→21:46)
[2017-05-20] MEDS: CARVEDILOL 25 MG TAB PO SCH (08:28)
[2017-05-20] MEDS: GEMFIBROZIL 600 MG TAB PO SCH ×2 (08:28→17:18)
[2017-05-20] MEDS: GABAPENTIN 100 MG CAP PO SCH ×2 (08:30→20:21)
[2017-05-20] MEDS: ERTAPENEM 1 GM in NS 100 ML IV SCH (08:37)
[2017-05-20] MEDS: HYDROCODONE/APAP 5/325 TAB PO PRN (08:37)
--- NOTE | 2017-05-20 08:44 | SOAPPROG ---
SOAP Progress Note Assessment/Plan: Assessment/Plan: - 71 M POD#4 s/p ex-lap, colectomy - pain still well controlled, now on oral narcotics. Abdomen is soft, minimally distended and minimally tender. Marimar were withdrawn once again in the midline incision, anticipate removing them tomorrow. Has some bowel sounds , not robust. Tolerating a regular diet, had a hamburger and Fijian fries last night for dinner. Feels like he needs to have a bowel movement today. Anticipate that once he has more robust bowel function will work towards discharge, within the next 24 hours. 05/17/17 07:45 05/19/17 12:01 05/19/17 12:02 05/20/17 08:43 Objective: Vital Signs Temp Pulse Resp BP Pulse Ox 36.5 C 66 20 126/66 H 92 05/20/17 04:00 05/20/17 08:28 05/20/17 04:00 05/20/17 08:28 05/20/17 04:00 Laboratory Results 05/18/17 04:50 05/20/17 04:44 05/19/17 05/20/17 05/21/17 05:59 05:59 05:59 Intake Total 100 200 Output Total 1750 525 Balance -1650 -325 ICD10 Worksheet Patient Problems: Problems Problem Status Onset Bowel obstruction Acute CKD (chronic kidney disease) Acute
--- NOTE | 2017-05-20 11:25 | HOSPPROG ---
Hospitalist Progress Note Assessment/Plan: * Colon cancer s/p resection, near obstructing mass -advance diet -outpatient oncology consult -IV ertapenem per surgery - 5 days planned * Acute on chronic kidney disease - now back to baseline creatinine 1.7 -continue to hold ACEI/diuretics * Hyperkalemia - resolved -hold ACEI * DM II -restart home insulin dose * HTN - BP still lower than baseline -continue coreg - resume other BP meds as indicated * Hypoxia - possible chronic -CXR with atelectasis and possible infiltrate -on abx -continue IS -will likely need home O2 * Obesity BMI 35 Subjective: Tolerating diet but no BM yet. No CP/SOB Objective: Vital Signs Temp Pulse Resp BP Pulse Ox 36.4 C 66 21 H 126/66 H 93 05/20/17 08:00 05/20/17 08:28 05/20/17 08:00 05/20/17 08:28 05/20/17 08:00 Laboratory Results 05/18/17 04:50 05/20/17 04:44 05/19/17 05/20/17 05/21/17 05:59 05:59 05:59 Intake Total 100 200 Output Total 1750 525 Balance -1650 -325 tele and continuous pulse ox reviewed - NSR, O2 taken off for trial in room on RA - desat 88% within minutes CXR viewed, my personal interpretation is - LLL atelectasis, possible RLL infiltrate - Physical Exam Constitutional: no apparent distress, appears nourished, not in pain Cardiovascular: regular rate and rhythym, no murmur, rub, or gallop Respiratory: no respiratory distress, no rales or rhonchi, clear to auscultation Gastrointestinal: normoactive bowel sounds, soft, non-tender abdomen, no palpable masses Skin: no rashes or abrasions, no fluctuance, no induration Neurologic: AAOx3, sensation intact bilaterally Psychiatric: interacting appropriately, not anxious, not encephalopathic, thought process linear ICD10 Worksheet Patient Problems: Problems Problem Status Onset Bowel obstruction Acute CKD (chronic kidney disease) Acute
--- NOTE | 2017-05-20 14:20 | GCON ---
[f rep st] CONSULTATION Corrected report INPATIENT ONCOLOGY CONSULTATION DATE OF CONSULTATION: 05/21/2017 REFERRING PHYSICIAN: Jason Hines MD REASON FOR CONSULTATION: New diagnosis of colon cancer. HISTORY OF PRESENT ILLNESS: The patient is a 71-year-old man with newly diagnosed stage II colon cancer. He presented with several months of decreased appetite, bloating, and abdominal distention. A CT scan showed an obstruction of the distal colon. He was ultimately taken to the operating room on May 16. The pathology of the left-sided colectomy revealed invasive colonic adenocarcinoma, 5.5 cm, moderately differentiated with invasion into the subserosal adipose tissue. There was focal perineural and vascular invasion. Margins were negative. There were two tubular adenomas noted, and there were 15 lymph nodes with no metastatic carcinoma involved. He has been recovering reasonably well postoperatively, and does not currently have any complaints. PAST HISTORY: 1. Diabetes. 2. Diabetic neuropathy, for which he takes gabapentin. 3. Congestive heart failure. 4. Chronic kidney disease, with a creatinine of 1.7 at baseline. CURRENT MEDICATIONS: Include [place], carvedilol, clonidine, ertapenem, gabapentin, gemfibrozil, subcutaneous heparin, insulin sliding scale. ALLERGIES: No known drug allergies. FAMILY HISTORY: There is no family history of colorectal cancer or other types of cancer. SOCIAL HISTORY: He quit smoking 30 years ago. Denies alcohol use. He works selling jewelry. He is . REVIEW OF SYSTEMS: Other than the pertinent positives in HPI, a 14-point review of systems was negative. PHYSICAL EXAMINATION: VITAL SIGNS: His temperature was 36.7, blood pressure 139 /71, heart rate 67, oxygen saturation 94% on 2 L. GENERAL: He is a moderately obese man, in no acute distress. HEENT: Sclerae anicteric. Oropharynx is clear. NECK: Supple, without lymphadenopathy. LUNGS: Clear to auscultation bilaterally. CARDIAC: Regular rate and rhythm. No murmurs, gallops, or rubs. ABDOMEN: Quiet bowel sounds. Mildly distended, without focal rebound, tenderness or guarding. EXTREMITIES: Without edema. NEUROLOGIC: He is alert and oriented x3. Strength and sensation were normal. LABORATORY DATA: White count 8.97, hemoglobin 13.5, platelets of 156. Sodium 135, potassium 4, chloride of 111, bicarb 25, BUN 56, creatinine 1.6. Preoperative CEA was mildly elevated at 4.18. A noncontrast CT on admission did not show evidence of metastatic disease in the abdomen or pelvis. IMPRESSION: This is a 71-year-old man with newly diagnosed stage II colorectal cancer. He has completed his surgical therapy. He has not been adequately staged radiographically, although, the risk of distant metastasis is fairly low. Given his baseline renal impairment, he would most likely benefit from a PET-CT scan performed in the outpatient setting once he is discharged. We discussed the role of possible adjuvant chemotherapy to prevent distant metastatic recurrence. The use of adjuvant chemotherapy for stage II patients is controversial, and is largely decided on a patient by patient basis. He does have several risk factors, including lymphovascular and perineural invasion, as well as the fact that he presented with obstruction. Microsatellite instability testing is pending. If he does have microsatellite unstable tumor, those patients have a better prognosis, and clearly do not benefit from chemotherapy. If he does not, there may be a modest benefit to prevent a recurrence on the order of 3% to 5% in absolute terms. I would only treat him with Xeloda or 5-FU , as oxaliplatin is contraindicated given his pre-existing diabetic neuropathy. Additionally, whether or not this is an effective therapy in patients age 70 and older is unclear, and he has some comorbidities that may make it more difficult for him to overall tolerate therapy. I suggest that we see how he recovers, follow up the final MSI results, and discuss this issue further in the outpatient setting. Regardless, he will need a colonoscopy once he has recovered from his surgery, in order to look for other evidence of cancers or precancerous lesions. I will plan to see him in the outpatient setting once he is discharged. I gave him a copy of my card with the clinic's phone number on it, to call when that time comes. Thank you for this consultation. It was a pleasure to meet the patient, and I appreciate the opportunity to be involved in his care. /[id number]/MODL Carloz worktype, 05/22/17, michael NAVA
[2017-05-20] MEDS ORDERED: INSULIN GLARGINE 100 UNITS/ML SYRINGE SC SCH (21:00)
[2017-05-21] MEDS: INSULIN LISPRO 100 UNIT/ML SC SCH ×3 (01:13→14:18)
[2017-05-21] MEDS: HYDROCODONE/APAP 5/325 TAB PO PRN ×2 (02:22→14:18)
[2017-05-21] MEDS: HEPARIN 5,000 UNIT/0.5 ML SYR SC SCH ×2 (05:07→14:18)
[2017-05-21] MEDS ORDERED: amLODIPine BESYLATE 5 MG TAB PO SCH (09:15)
[2017-05-21] MEDS: ERTAPENEM 1 GM in NS 100 ML IV SCH (09:23)
--- NOTE | 2017-05-21 10:15 | PDIAF ---
- Diagnosis Diagnosis: Colon cancer Code Status: Full Code - Medication Management Discharge Medications: Medications to Continue on Transfer Amlodipine Besylate [Norvasc] 5 mg PO BID 05/15/17 [Last Taken 05/15/17 1 tab] Carvedilol [Coreg (*)] 25 mg PO DAILY 05/15/17 [Last Taken 05/15/17] Gabapentin [Neurontin 100 MG (*)] 100 mg PO BID 05/15/17 [Last Taken Unknown] Gemfibrozil [Lopid 600 MG (*)] 600 mg PO BIDAC 05/15/17 [Last Taken 05/15/17 1 tab] Insulin Aspart [novoLOG] 5 - 15 unit SC DAILY 05/15/17 [Last Taken 05/15/17] Insulin Aspart [novoLOG] 25 unit SC DAILY@16 05/15/17 [Last Taken 05/14/17] Insulin Glargine [Lantus 100 UNITS/ML (*)] 40 - 45 units SC HS 05/15/17 [Last Taken 05/14/17] Discharge Medications: Refer to the Discharge Home Medication list for PRN reason. - Orders Services needed: Home Care, Registered Nurse, Physical Therapy, Occupational Therapy Home Care Face to Face: I certify that this patient was under my care and that I had the required [id number] encounter meeting the encounter requirements on the discharge day. My findings support the fact that the patient is homebound as defined in CMS Chapter 7 Medicare Benefits Manual 30.1.1, The condition of the patient is such that there exists a normal inability to leave home and consequently, leaving home would require a considerable and taxing effort. Diet Recommendation: no restrictions on diet Equipment: HOLD - CLONIDINE, LASIX, HCTZ and LISINOPRIL Additional: Blood pressure checks - please call results to Dr. Meléndez - Labs/Radiology BMP Date: 05/24/17 - Follow Up Care Current Providers and Referrals: BECKY JUAREZ,UNKNOWN [Other] - As per Instructions Glenn Meléndez MD [Medical Doctor] - Isiah Nolan MD [Medical Doctor] -
[2017-05-21] MEDS: CARVEDILOL 25 MG TAB PO SCH (10:18)
[2017-05-21] MEDS: GABAPENTIN 100 MG CAP PO SCH (10:18)
[2017-05-21] MEDS: GEMFIBROZIL 600 MG TAB PO SCH (10:18)
[2017-05-21] MEDS ORDERED: NS 500 ML IV ONE (10:26)
--- NOTE | 2017-05-21 10:39 | SOAPPROG ---
SOAP Progress Note Assessment/Plan: Assessment/Plan: - 71 M POD#4 s/p ex-lap, colectomy - Pain never really an issue, taking PO narcotics. - Tolerating reg diet, having bowel function with great bowel sounds. Will remove midline [place] today - Voiding, kidney function improving - Pretty hypoxic on RA, getting some imaging to ro PE. - If chest imaging looks good, would like to dc later today. Will likely need home O2 for a while 05/17/17 07:45 05/19/17 12:01 05/19/17 12:02 05/20/17 08:43 05/21/17 10:38 Subjective: eating pancakes, wants to go home. Objective: Vital Signs Temp Pulse Resp BP Pulse Ox 36.5 C 74 18 159/81 H 94 05/21/17 08:00 05/21/17 10:18 05/21/17 08:00 05/21/17 10:19 05/21/17 08:00 Laboratory Results 05/18/17 04:50 05/20/17 04:44 05/20/17 05/21/17 05/22/17 05:59 05:59 05:59 Intake Total 200 800 Output Total 525 1000 Balance -325 -200 ICD10 Worksheet Patient Problems: Problems Problem Status Onset Bowel obstruction Acute CKD (chronic kidney disease) Acute
[2017-05-21] MEDS ORDERED: IOPAMIDOL (ISOVUE 370) 100 ML BTL IV ONE (11:23)
[2017-05-21 12:13] VITALS: BP 141/76; PULSE 78; RESP 16; TEMP 98.4
[2017-05-21 12:35] VITALS: O2SAT 84
--- NOTE | 2017-05-21 18:54 | GDS ---
[f rep st] DISCHARGE SUMMARY DISCHARGE DIAGNOSES: 1. Colon cancer, status post resection. 2. Acute on chronic kidney disease. 3. Hyperkalemia. 4. Diabetes, type 2. 5. Hypertension. 6. Hypoxemia. 7. Obesity. BMI 35. HISTORY: The patient is a 71-year-old male, who presented with an obstructing colon mass, which was resected. Pathology consistent with colon cancer. He was seen here by Dr. Nolan, and should fo llow up as an outpatient regarding further staging, and assessing chemotherapy needs. He did have s ome fecal contamination of the perineum, and got 5 days of IV ertapenem postoperatively, and, at thi s point, shows no further indication of ongoing peritonitis, and antibiotic is discontinued at disch arge. HOSPITAL COURSE: Upon presentation, he was in acute renal failure with hyperkalemia. He is on mult iple drugs for hypertension. We held his AURELIO inhibitor and diuretics, as well as his clonidine, and his creatinine returned to his baseline, 1.6. Potassium is 4.9 at discharge. Blood pressure is re maining borderline, and he does not need to resume all these medications at this time. I have spoke with his primary assembler motor vehicle, Dr. Meléndez, and he is aware. He will follow blood pressure closely [facility], and follow up with Dr. Meléndez as blood pressure elevates to consider reintrod ucing these medications. He is quite hypoxic, and so is going home with home oxygen. There was a report that he may have bee n hypoxic in the past, and this may be chronic. Given his new malignancy, however, I did rule out P E. CTA was a poorly timed bolus; however, we were able to rule out central pulmonary embolus. Clin ically, I do think this is atelectasis, obesity, and postoperative state contributing, and clinical suspicion for PE is low enough, that I do not think we need to repeat a CT at this time to look for peripheral pulmonary embolus. DISCHARGE MEDICATIONS: Please see computerized record for full detailed list. New medications: Vicodin 5/325 1-2 every 4 hours as needed. Medications held at discharge include: Hydrochlorothiazide, Lasix, clonidine, and lisinopril. ADDITIONAL DISCHARGE INSTRUCTIONS: 1. Check blood pressure frequently this upcoming week, and call all high readings to Dr. Meléndez. [facility], PT/OT, VNS was recommended, but he refused, therefore it is recommended that his pur moi a home blood pressure cuff and/or go to Dr. Meléndez's office for blood pressure checks. 2. Follow up with Dr. Nolan at [facility] for further staging, and possible ch emo options. Greater than 30 minutes' time was spent arranging this discharge. Patient seen and examined by me marylu freeman the day of discharge. /[id number]/MODL
== END 2017-05-21 15:18 | disposition home or self-care (01) | DRG 330 ==
LOC: F3E 20:04
PROVIDERS: ADMIT Student in an Organized Health Care Education/Training Program; ATTEND Internal Medicine
PROC: 0DTL4ZZ Resection of Transverse Colon, Percutaneous Endoscopic Approach (ICD-10-PCS; principal; 2017-05-16 12:00)
DX: C18.9 Malignant neoplasm of colon, unspecified (principal); N17.9 Acute kidney failure, unspecified; I12.9 Hypertensive chronic kidney disease with stage 1 through stage 4 chronic kidney disease, or unspecified chronic kidney disease; E87.2 Acidosis; N18.9 Chronic kidney disease, unspecified; E87.5 Hyperkalemia; E11.22 Type 2 diabetes mellitus with diabetic chronic kidney disease; R09.02 Hypoxemia; E66.9 Obesity, unspecified; Z68.35 Body mass index [BMI] 35.0-35.9, adult
CPT/HCPCS: 97116-GP; 97162-GP; 97165-GO; 97535-GO; G8978-GP-CK; G8979-GP-CI; G8987-GO-CK; G8988-GO-CI; J0610; J1170; J1335; J1815; J2250; J3010; Q9967

== ENCOUNTER → 2017-06-14 | Outpatient (CLI) | payer OTHER | LOC: FIMAGING 09:57 | PROVIDERS: ATTEND Surgery | DX: R09.02 Hypoxemia (principal); J90 Pleural effusion, not elsewhere classified; R91.8 Other nonspecific abnormal finding of lung field; Z98.890 Other specified postprocedural states ==

== ENCOUNTER → 2017-07-24 | Outpatient (CLI) | payer OTHER | LOC: FIMAGING 09:29 | PROVIDERS: ATTEND Thoracic Surgery (Cardiothoracic Vascular Surgery) | DX: Z95.1 Presence of aortocoronary bypass graft (principal); I27.2 Other secondary pulmonary hypertension; J90 Pleural effusion, not elsewhere classified ==

== ENCOUNTER → 2017-07-27 | Outpatient (CLI) | payer OTHER | LOC: BHFA 11:00 | PROVIDERS: ATTEND Internal Medicine Cardiovascular Disease | DX: I50.33 Acute on chronic diastolic (congestive) heart failure (principal); I25.810 Atherosclerosis of coronary artery bypass graft(s) without angina pectoris; I48.91 Unspecified atrial fibrillation; R06.02 Shortness of breath ==

== ENCOUNTER → 2017-08-15 | Outpatient (CLI) | payer OTHER | LOC: FIMAGING 13:39 | PROVIDERS: ATTEND Internal Medicine Cardiovascular Disease | DX: I50.9 Heart failure, unspecified (principal); I48.91 Unspecified atrial fibrillation; Z95.1 Presence of aortocoronary bypass graft ==

== ENCOUNTER → 2017-08-16 | Outpatient (CLI) | payer OTHER | LOC: CIMAGING 17:36 | PROVIDERS: ATTEND Thoracic Surgery (Cardiothoracic Vascular Surgery) | DX: R60.0 Localized edema (principal); R93.6 Abnormal findings on diagnostic imaging of limbs; Z95.1 Presence of aortocoronary bypass graft | CPT/HCPCS: 93970-PO ==

== ENCOUNTER 2017-12-03 21:36 | Inpatient (IN) | payer OTHER ==
--- NOTE | 2017-12-03 22:23 | CPEKG ---
Heart Rate: 76 RR Interval: 789 P-R Interval: 172 QRSD Interval: 98 QT Interval: 412 QTC Interval: 464 P [place]: 60 QRS [place]: 41 T Wave [place]: 61 EKG Severity - BORDERLINE ECG - EKG Impression: SINUS RHYTHM EKG Impression: PROBABLE LEFT ATRIAL ABNORMALITY EKG Impression: BORDERLINE R WAVE PROGRESSION, ANTERIOR LEADS Electronically Signed By: Del House 04-Dec-2017 04:41:15
--- NOTE | 2017-12-03 23:05 | EDPHY ---
H & P Stated Complaint: injured toe Time Seen by Provider: 12/03/17 22:33 HPI/ROS: Chief Complaint: Toe pain, swelling HPI: 72-year-old diabetic male with peripheral neuropathy is presenting with left 2nd toe pain. Patient states that he thinks is toe was bent backwards in his foot all day and he did not appreciated. He took his shoe off in notice that his toe was very red swollen and warm to the touch. He also has a blister on the top of the toe. No fevers or chills. No streaking of his foot. He does not have a hat presser that he sees. Of note he also has a history of coronary artery disease, COPD and end-stage renal disease. Oxygen saturations were 82% on room air on arrival. Patient does wear oxygen at night and states that he feels his respiratory status is normal. He has had some congestion today. No fevers or chills. No shortness of breath. No nausea or vomiting. No chest pain. ROS: 10 point Review of Systems is negative except as noted in the HPI. PMH: Type 2 diabetes, peripheral neuropathy, coronary artery disease, COPD, CHF , renal insufficiency Social History: No smoking, no alcohol, no recreational drug use Family History: non-contributory Physical Exam: Gen: Awake, Alert, No Distress HEENT: Nose: no rhinorrhea Eyes: PERRLA, EOMI Mouth: Moist mucosa Neck: Supple, no JVD Chest: nontender, lungs clear to auscultation Heart: S1, S2 normal, no murmur Abd: Soft, non-tender, no guarding Back: no CVA tenderness, no midline tenderness Ext: no edema, patient has a markedly edematous and erythematous the left 2nd toe. There is a ruptured blister on the dorsum over the middle phalanx. Patient does have decreased sensation. Skin: Per foot exam Neuro: CN II-XII intact, Sensation grossly intact, Strength 5/5 in bilateral upper and lower extremities - Personal History Current Tetanus/Diphtheria Vaccine: No Current Tetanus Diphtheria and Acellular Pertussis (TDAP): No - Medical/Surgical History Hx Asthma: No Hx Chronic Respiratory Disease: No Hx Diabetes: Yes Hx Cardiac Disease: Yes Hx Renal Disease: No Hx Cirrhosis: No Hx Alcoholism: No Hx HIV/AIDS: No Hx Splenectomy or Spleen Trauma: No Other PMH: DM, CHF, L thoracotomy 2006, necrotizing fascitis 2005, right inner thigh surgery, fibroma removal, tonsillectomy, right knee arthroscopy, HTN, colon cancer & resection 2017 - Social History Smoking Status: Former smoker Constitutional: Initial Vital Signs Temperature (C) 36.6 C 12/03/17 21:38 Heart Rate 85 12/03/17 21:38 Respiratory Rate 16 12/03/17 21:38 Blood Pressure 210/107 H 12/03/17 21:38 O2 Sat (%) 83 L 12/03/17 21:38 O2 Delivery Mode Room Air O2 (L/minute) 2 Allergies/Adverse Reactions: No Known Allergies Allergy (Verified 05/15/17 13:23) Home Medications: Medication Instructions Recorded Gemfibrozil [Lopid 600 MG (*)] 600 mg PO BIDAC 05/15/17 Acetaminophen [Tylenol 325mg (*)] 325 - 650 mg PO Q4HRS PRN #0 tab 07/20/17 Amiodarone HCl [Pacerone (*)] 200 mg PO BID #0 tab 07/20/17 Aspirin EC [Aspirin EC 81 mg (*)] 81 mg PO DAILY #0 tab 07/20/17 Carvedilol [Coreg (*)] 6.25 mg PO BIDMEAL #0 tab 07/20/17 Diltiazem Cd [Cardizem ER 120 MG 120 mg PO DAILY #0 cap 07/20/17 (*)] Fluticasone/Salmeter 250/50Mcg 1 puffs IH BID #0 disk 07/20/17 [Advair 250/50 (*)] Hydrocodone/APAP 5/325 [[place] 1 - 2 tab PO Q4HRS PRN #0 tab 07/20/17 5/325 (*)] Insulin Glargine [Lantus 100 20 units SC HS #0 ml 07/20/17 UNITS/ML (*)] Insulin Lispro [humALOG LISPRO 100 0 unit SC TIDMEAL #0 vial 07/20/17 units/ml (*)] Insulin Lispro [humALOG LISPRO 100 5 - 15 unit SC DAILY #0 unit 07/20/17 units/ml (*)] Insulin Lispro [humALOG LISPRO 100 25 unit SC DAILY@1600 #0 unit 07/20/17 units/ml (*)] Polyethylene Glycol 3350 [Miralax 17 gm PO DAILY PRN #0 pkt 07/20/17 17 gm (*)] Potassium Cl [Klor-Con 10 meq (RX)] 10 meq PO DAILY #0 tab 07/20/17 Sennosides/Docusate Sodium 1 - 2 tab PO BID PRN #0 tab 07/20/17 [Senokot-S] Spironolactone [Aldactone] 50 mg PO DAILY #0 tab 07/20/17 Temazepam [Restoril 15 MG (*)] 15 mg PO HS PRN #0 cap 07/20/17 Tiotropium Inhaler [Spiriva 18 mcg IH DAILY #0 mdi 07/20/17 Handihaler] Torsemide [Demadex] 40 mg PO DAILY AT 10AM #0 tab 07/20/17 Medical Decision Making ED Course/Re-evaluation: Type 2 diabetic with a markedly erythematous and edematous left 2nd toe. Patient also has a blister. Symptoms are very concerning for a cellulitis. Given his diabetes a significant amount of risk factors a this could very rapidly progressed to osteomyelitis or cellulitis of the foot. I will order cultures and IV antibiotics now. I am going to admit to the hospital for further monitoring, infectious disease consultation tomorrow and continued IV antibiotics. - Data Points Laboratory Results: 12/03/17 12/03/17 12/03/17 22:30 22:14 22:14 WBC Pending RBC Pending Hgb Pending Hct Pending MCV Pending MCH Pending MCHC Pending RDW Pending Plt Count Pending MPV Pending Neut % (Auto) Pending Lymph % (Auto) Pending [place] % (Auto) Pending Eos % (Auto) Pending Baso % (Auto) Pending Nucleat RBC Rel Count Pending Absolute Neuts (auto) Pending Absolute Lymphs (auto) Pending Absolute Monos (auto) Pending Absolute Eos (auto) Pending Absolute Basos (auto) Pending Absolute Nucleated RBC Pending Immature Gran % Pending Immature Gran # Pending Sodium Pending Potassium Pending Chloride Pending Carbon Dioxide Pending Anion Gap Pending BUN Pending Creatinine Pending Estimated GFR Pending Glucose Pending Calcium Pending Nasal Influenza A PCR Pending Nasal Influenza B PCR Pending Departure - [facility] Clinical Impression: Diabetic foot infection Condition: Fair
[2017-12-03] MEDS ORDERED: ceFAZolin 2 GM/DEXTROSE 100 ML IV ONE (23:06)
[2017-12-03] MEDS ORDERED: ONDANSETRON 4 MG/2 ML VIAL IVP PRN (23:15)
[2017-12-03] MEDS ORDERED: ONDANSETRON DISINTEGRATING 4 MG TAB PO PRN (23:15)
[2017-12-03] MEDS ORDERED: ACETAMINOPHEN 325 MG TAB PO PRN (23:15)
[2017-12-03 23:32] LABS: PLATELET COUNT 184 10^3/uL (150-400)
[2017-12-04] MEDS ORDERED: D50W 25 GM/50 ML SYR IVP PRN (01:00)
[2017-12-04] MEDS ORDERED: INSULIN GLARGINE 100 UNITS/ML SYRINGE SC SCH ×2 (01:15→21:00)
[2017-12-04] MEDS ORDERED: D50W 25 GM/50 ML VIAL IVP PRN (01:30)
--- NOTE | 2017-12-04 04:57 | PDGENHP ---
History and Physical - Chief Complaint Toe redness - History of Present Illness 72 yo M w/ IDDM, COPD, AF,CKD, and CAD presents with toe redness. Patient noticed L 2nd toe erythema after 1 day of wearing ill fitting shoes. He reports his toe was normal on the morning of admission. He denies systemic symptoms of infection including fevers and chills. He was admitted for IV antibiotics noting diabetes and multiple comorbidities. History Information - Allergies/Home Medication List Allergies/Adverse Reactions: No Known Allergies Allergy (Verified 05/15/17 13:23) Home Medications: Gemfibrozil [Lopid 600 MG (*)] 600 mg PO BIDAC 05/15/17 [Last Taken 06/21/17] I have personally reviewed and updated: family history, medical history - Past Medical History atrial fibrillation, coronary artery disease, COPD, diabetes type 2 Additional medical history: CKD - Surgical History Reports: coronary bypass surgery - Family History Positive for: diabetes type II - Social History Smoking Status: Former smoker Review of Systems Review of Systems: ROS: 10pt was reviewed & negative except for what was stated in HPI & below Physical Exam Physical Exam: Temp Pulse Resp BP Pulse Ox 36.6 C 65 16 154/70 H 96 12/04/17 04:00 12/04/17 04:00 12/04/17 04:00 12/04/17 04:00 12/04/17 04:00 O2 (L/minute) 2 Constitutional: no apparent distress, not in pain Eyes: PERRL, EOMI Ears, Nose, Mouth, Throat: moist mucous membranes, no oral mucosal ulcers Cardiovascular: regular rate and rhythym, no murmur, rub, or gallop, edema (1+ L >R) Respiratory: no respiratory distress, clear to auscultation Gastrointestinal: normoactive bowel sounds, soft, non-tender abdomen Skin: warm, other (Erythematous L 2nd toe with small abrasion; small ulceration L heel) Neurologic: AAOx3, CN II-XII Intact Psychiatric: interacting appropriately, not anxious Lab Data & Imaging Review 12/03/17 22:14 12/03/17 22:14 WBC 7.58 10^3/uL (3.80-9.50) 12/03/17 22:14 RBC 4.82 10^6/uL (4.40-6.38) 12/03/17 22:14 Hgb 15.0 g/dL (13.7-17.5) 12/03/17 22:14 Hct 44.3 % (40.0-51.0) 12/03/17 22:14 MCV 91.9 fL (81.5-99.8) 12/03/17 22:14 MCH 31.1 pg (27.9-34.1) 12/03/17 22:14 MCHC 33.9 g/dL (32.4-36.7) 12/03/17 22:14 RDW 15.3 % (11.5-15.2) H 12/03/17 22:14 Plt Count 184 10^3/uL (150-400) 12/03/17 22:14 MPV 9.7 fL (8.7-11.7) 12/03/17 22:14 Neut % (Auto) 72.0 % (39.3-74.2) 12/03/17 22:14 Lymph % (Auto) 11.6 % (15.0-45.0) L 12/03/17 22:14 [place] % (Auto) 8.4 % (4.5-13.0) 12/03/17 22:14 Eos % (Auto) 6.9 % (0.6-7.6) 12/03/17:14 Baso % (Auto) 0.7 % (0.3-1.7) 12/03/17:14 Nucleat RBC Rel Count 0.0 % (0.0-0.2) 12/03/17:14 Absolute Neuts (auto) 5.46 10^3/uL (1.70-6.50) 12/03/17 22:14 Absolute Lymphs (auto) 0.88 10^3/uL (1.00-3.00) L 12/03/17 22:14 Absolute Monos (auto) 0.64 10^3/uL (0.30-0.80) 12/03/17 22:14 Absolute Eos (auto) 0.52 10^3/uL (0.03-0.40) H 12/03/17 22:14 Absolute Basos (auto) 0.05 10^3/uL (0.02-0.10) 12/03/17 22:14 Absolute Nucleated RBC 0.00 10^3/uL (0-0.01) 12/03/17 22:14 Immature Gran % 0.4 % (0.0-1.1) 12/03/17 22:14 Immature Gran # 0.03 10^3/uL (0.00-0.10) 12/03/17 22:14 Sodium 139 mEq/L (134-144) 12/03/17 22:14 Potassium 4.4 mEq/L (3.5-5.2) 12/03/17 22:14 Chloride 100 mEq/L (97-110) 12/03/17 22:14 Carbon Dioxide 28 mEq/l (22-31) 12/03/17 22:14 Anion Gap 11 mEq/L (8-16) 12/03/17 22:14 BUN 57 mg/dL (7-23) H 12/03/17 22:14 Creatinine 2.2 mg/dL (0.7-1.3) H 12/03/17 22:14 Estimated GFR 30 12/03/17 22:14 Glucose 242 mg/dL (70-100) H 12/03/17 22:14 POC Glucose 193 mg/dL (70-100) H 12/04/17 01:22 Calcium 9.3 mg/dL (8.5-10.4) 12/03/17 22:14 Nasal Influenza A PCR NEGATIVE FOR FLU A (NEGATIVE) 12/03/17 22:30 Nasal Influenza B PCR NEGATIVE FOR FLU B (NEGATIVE) 12/03/17 22:30 Imaging Review: Imaging Impressions Foot X-Ray 12/03/17 23:32 Impression: No direct radiographic evidence of osteomyelitis. Assessment & Plan Assessment: 72 yo M w/ IDDM, COPD, AF,CKD, and CAD presents with likely mild diabetic foot infection. Plan: 1. L 2nd toe erythema - Possibly represents infection noting erythema but timeline is quite rapid noting only about 8 hours of symptoms. He denies systemic symptoms of infection and has a normal WBC. XR without evidence of OM. - Cefazolin 2g IV q8h - Blood cultures ordered 2. CAD - s/p CABG in May of 2017. Denies chest pain. Compliant with home medications. 3. COPD - On 2L O2 nocturnally. 4. Hx AF - In NSR on admission, reports he has been off of amiodarone for the past 3 weeks. 5. Diastolic CHF - On torsemide 100 mg AM and 40 mg PM as outpatient. Has mild LE edema but otherwise well compensated. 6. IDDM - Takes insulin glargine 25 u qHS + SSI as outpatient, Will continue. Diet - Regular Code - Full Ppx - SCDs per patient request Dispo - Admit to observation status
[2017-12-04 05:01] LABS: PLATELET COUNT 166 10^3/uL (150-400)
[2017-12-04] MEDS: ceFAZolin 2 GM/DEXTROSE 100 ML IV SCH ×3 (05:47→20:59)
[2017-12-04] MEDS: INSULIN LISPRO 100 UNIT/ML SC SCH ×3 (08:37→18:02)
[2017-12-04] MEDS ORDERED: ENOXAPARIN 40 MG/0.4 ML SYR SC SCH (09:00)
--- NOTE | 2017-12-04 11:16 | HOSPPROG ---
Hospitalist Progress Note Assessment/Plan: 72 yo M w dm, cad here w L second toe cellulitis toe: on cefazolin per pt, improved since admit film neg for osteo; low suspicion for abscess given recent onset rec at least 24 hours IV abx cad: continue meds chf: continue diuretics dm: type 2 home sliding scale proph: rec sc heparin in in hospital 48 hours dispo: change to inpt Subjective: foot film w no abscess (interp by me). anxious for dc Objective: Vital Signs Temp Pulse Resp BP Pulse Ox 36.8 C 77 18 163/105 H 93 12/04/17 08:00 12/04/17 08:00 12/04/17 08:00 12/04/17 08:00 12/04/17 08:00 Laboratory Results 12/04/17 04:30 12/04/17 04:30 12/03/17 12/04/17 12/05/17 05:59 05:59 05:59 Intake Total 120 Balance 120 - Physical Exam Constitutional: no apparent distress, appears nourished Eyes: PERRL, anicteric sclera Ears, Nose, Mouth, Throat: moist mucous membranes, hearing normal Cardiovascular: regular rate and rhythym, no murmur, rub, or gallop Respiratory: no respiratory distress, no rales or rhonchi Gastrointestinal: normoactive bowel sounds, soft, non-tender abdomen Genitourinary: no bladder fullness, No bhandari in urethra Skin: warm, normal color Musculoskeletal: full muscle strength, other (L second toe erthematous, edematous and warm w no fluctuance or lymphangitic streaking) ICD10 Worksheet Patient Problems: Problems Problem Status Onset Diabetic foot infection Acute HERBIE (acute kidney injury) Acute Acute exacerbation of congestive heart failure Acute Bowel obstruction Acute CAD, multiple vessel Acute Chronic Disease Mgmt/Transitional Care Acute Postoperative atrial fibrillation Acute S/P CABG x 4 Acute ~06/28/17 S/P thoracotomy Acute ~07/11/17 CKD (chronic kidney disease) Chronic Diabetes mellitus Chronic
[2017-12-04] MEDS ORDERED: TORSEMIDE 20 MG TAB PO SCH ×2 (11:30→13:00)
[2017-12-04] MEDS: CARVEDILOL 25 MG TAB PO SCH ×2 (11:37→17:24)
[2017-12-04] MEDS: TORSEMIDE 20 MG TAB PO SCH (11:37)
--- NOTE | 2017-12-04 11:51 | ASMTCASEMG ---
Living Arrangements What is your living Answers: With Spouse arrangement? Who do you live with? Type Of Residence What kind of residence do Answers: House you live in? Discharge Plan Comments Coordination Status Comments Notes: Patient is a 72yo male who was admitted for L 2nd toe erthema, CAD, COPD, HX AF, and IDDM. Patient admitted observation status. No orders for therapies yet. D/C needs TBD. CM will follow. Date Signed: 12/04/2017 11:50 AM Electronically Signed By:Ofe Guidry LCSW
[2017-12-04] MEDS ORDERED: NON-FORMULARY NEW DRUG (Insulin Aspart [Novolog] 0 UNIT) SC SCH (12:00)
--- NOTE | 2017-12-04 13:56 | WOCRNPDOC ---
WOCRN Advanced Assessment Note - Skin Integrity Problem, Advanced Assess Left Second Toe Dressing Type: Band Aid Dressing Description: Intact Exudate Amount: Scant Exudate Color: Reddish/Yellow Exudate Characteristic(s): Serosanguinous Integumentary Issue Intervention: Visualized Under Dressing, Silver Gel Applied Victoria Wound Tissue: Erythema, Swollen Victoria Wound Swelling: Moderate Wound Bed Color: Brown, Red Wound Bed Constitution: Red/[place] - Non Granular Tissue, Scab, De-roofed Serous Blister Site Odor: None Site Measurement - Head-to-Toe Length X Width X Depth (cm): 0.4cmx0.4cmx0.1cm Skin Integrity Problem Comment: Discrete, de-roofed blister noted on L 2nd toe w / moderate periwound erythema and swelling. Patient currently on ABT for cellulits to this extremity. +2 pitting edema extending from foot to mid-calf, w / c/o mild pain during assessment. Nursing initiated band-aid and Silvasorb gel for wound, and I think this is appropriate to continue. No need for WCRN to follow ongoing. Left Heel Dressing Type: Band Aid Dressing Description: Clean/Dry, Intact Exudate Amount: Scant Exudate Color: Reddish/Yellow Exudate Characteristic(s): Serosanguinous Integumentary Issue Intervention: Dressing Changed, Silver Gel Applied Victoria Wound Tissue: Dry, Calloused Victoria Wound Swelling: None Wound Bed Color: Brown Wound Bed Constitution: Scab Site Measurement - Head-to-Toe Length X Width X Depth (cm): 0.5cmx0.6cmx0.1cm Skin Integrity Problem Comment: Moist scab noted to posterior heel w/ no periwound erythema or swelling and no necrosis observed. Per patient report, this wound is the result of poorly fitting inserts in his shoe. Changed band- aid to RaftOutvReactivity Life to provide more cushioning to the area. In addition, discussed with patient adding an exfoliating lotion to his daily skin care. He has dry, cracked, fissured heels bilaterally as a result of his DM, and is currently only intermittently using regular lotion. Will place order for Atrac- tain lotion w/ alpha hydroxy and urea BID to help manage this ongoing dryness. Report given to search lead Trice.
--- NOTE | 2017-12-04 16:05 | PDMN ---
Medical Necessity Medical necessity: Change to IP, as of 12/04/17, per MD; los >2 mn for ongoing management of L 2nd toe cellulitis; admit for further monitoring, wound care & IV abx; hx CAD, recent CABG, COPD, CHF, AFIB, CKD & diabetes; per progress note & order 12/04/17
[2017-12-04] MEDS: GEMFIBROZIL 600 MG TAB PO SCH (17:25)
[2017-12-04] MEDS ORDERED: ASPIRIN EC 81 MG TAB PO SCH (18:00)
[2017-12-04] MEDS ORDERED: ZOLPIDEM TARTRATE 5 MG TAB PO PRN (18:20)
[2017-12-05] MEDS: ceFAZolin 2 GM/DEXTROSE 100 ML IV SCH (05:35)
[2017-12-05 07:31] VITALS: BP 155/87; PULSE 77; RESP 18; TEMP 98.1; O2SAT 96
[2017-12-05] MEDS: INSULIN LISPRO 100 UNIT/ML SC SCH (07:33)
[2017-12-05] MEDS: CARVEDILOL 25 MG TAB PO SCH (07:34)
[2017-12-05] MEDS: GEMFIBROZIL 600 MG TAB PO SCH (07:35)
--- NOTE | 2017-12-05 09:17 | HOSPPROG ---
Hospitalist Progress Note Assessment/Plan: 72 yo M w dm, cad here w L second toe cellulitis toe: improved on cefazolin cad: continue meds chf: continue diuretics dm: type 2 home sliding scale proph: rec sc heparin in in hospital 48 hours dispo: home today 10 add'l days keflex Subjective: anxious for dc. toe better Objective: Vital Signs Temp Pulse Resp BP Pulse Ox 36.7 C 77 18 155/87 H 96 12/05/17 07:29 12/05/17 07:29 12/05/17 07:29 12/05/17 07:29 12/05/17 07:29 12/04/17 12/05/17 12/06/17 05:59 05:59 05:59 Intake Total 100 Balance 100 - Physical Exam Constitutional: no apparent distress, appears nourished Eyes: PERRL, anicteric sclera Ears, Nose, Mouth, Throat: moist mucous membranes, hearing normal Cardiovascular: regular rate and rhythym, no murmur, rub, or gallop Respiratory: no respiratory distress, no rales or rhonchi Gastrointestinal: normoactive bowel sounds, soft, non-tender abdomen Genitourinary: no bladder fullness, No bhandari in urethra Skin: warm, normal color Musculoskeletal: full muscle strength, other (toe still warm but better) ICD10 Worksheet Patient Problems: Problems Problem Status Onset Diabetic foot infection Acute HERBIE (acute kidney injury) Acute Acute exacerbation of congestive heart failure Acute Bowel obstruction Acute CAD, multiple vessel Acute Chronic Disease Mgmt/Transitional Care Acute Postoperative atrial fibrillation Acute S/P CABG x 4 Acute ~06/28/17 S/P thoracotomy Acute ~07/11/17 CKD (chronic kidney disease) Chronic Diabetes mellitus Chronic
--- NOTE | 2017-12-05 10:40 | ASMTCMCOM ---
CM Note CM Note Notes: Pt discharging on po antibiotics, no needs identified. Will dc home w/support of , CM available for any changes. Date Signed: 12/05/2017 10:39 AM Electronically Signed By:Yessi Jj RN
[2017-12-05] MEDS: TORSEMIDE 20 MG TAB PO SCH (11:16)
[2017-12-05] MEDS ORDERED: INSULIN LISPRO 100 UNIT/ML SC SCH (12:00)
--- NOTE | 2017-12-05 16:53 | ASDISCHSUM ---
Discharge Information Plan Status:Home with No Needs Medically Cleared to Leave: Discharge Date:12/05/2017 10:58 AM CM D/C Disposition:Home, Routine, Self-Care ADT D/C Disposition:Home, Routine, Self-Care Projected Discharge Date:12/05/2017 10:58 AM Transportation at D/C:Family Discharge Delay Reason: Follow-Up Date:12/05/2017 10:58 AM Discharge Slot: Final Diagnosis: Placement Information Patient Contact Information Contact Name:DEANA Relationship: Address:[address] City:[place] Alternate Phone: State/Zip Code:[place] [address] Email: Financial Information Financial Class: Primary Plan Desc:MEDICARE INPATIENT Primary Plan Number:[id number] Secondary Plan Desc:DARBY DE PAZ Secondary Plan Number:[id number] Assessment Information [facility] Initial CM Assessment Living Arrangements What is your living Answers: With Spouse arrangement? Who do you live with? Type Of Residence What kind of residence do Answers: House you live in? Discharge Plan Comments Coordination Status Comments Notes: Patient is a 72yo male who was admitted for L 2nd toe erthema, CAD, COPD, HX AF, and IDDM. Patient admitted observation status. No orders for therapies yet. D/C needs TBD. CM will follow. Date Signed: 12/04/2017 11:50 AM Electronically Signed By:Ofe Guidry LCSW [facility] CM Progress Note CM Note CM Note Notes: Pt discharging on po antibiotics, no needs identified. Will dc home w/support of , ANDREIA available for any changes. Date Signed: 12/05/2017 10:39 AM Electronically Signed By:Yessi Jj RN Intervention Information Intervention Type:*KHAN-Signed Date of Service:12/04/2017 10:25 AM Patient Type:Observation Staff Member:Melissa Webster Hours: Discipline: Severity: Comment: Intervention Type:*Occurence 73 Date of Service:12/05/2017 11:30 AM Patient Type:Inpatient Staff Member:LAW Palacios, Deepthi Hours: Discipline: Severity: Comment:
--- NOTE | 2017-12-06 04:56 | GDS ---
[f rep st] DISCHARGE SUMMARY DISCHARGE DIAGNOSES: 1. Left 2nd toe cellulitis. 2. Diabetes. 3. Coronary artery disease, status post CABG. 4. Chronic obstructive pulmonary disease. 5. Atrial fibrillation. HOSPITAL COURSE: Please see admission history and physical by Dr. Aguilar Roland. The patient presented with rapidly progressing red toe. He had blood cultures which were negative. He had mini mal leukocytosis due to the clearly infected toe. Films were negative for osteomyelitis. He did not have an abscess or joint involvement. He was started on cefazolin with improvement. He received 24 hours of IV antibiotics. He was discharged home on a 10-day course of cephalexin. /[id number]/MODL
--- NOTE | 2017-12-10 09:01 | PQFORM ---
PHYSICIAN QUERY FORM Needs Your Response This query form is being sent to you to assure this patient record is coded properly. Please respond to the question below: SOCIOCULTURAL ANTHROPOLOGY PROFESSOR QUESTION: Dr Gracia Please clarify if this patients toe cellulitis is a skin complication caused by patients diabetes. __X_ Yes ___ No ___ Other (Please specify ) ___ Unable to Determine Thank You Lorena LINDER Compensation Business Partner INSTRUCTIONS FOR RESPONSE: Answer question by clicking on the "Edit Document" button. Move cursor to area below the stars. When complete, hit "Save." Click on the "Sign" button, then click "Sign" again. Type in your PIN and hit "Enter." MTDD
== END 2017-12-05 10:58 | disposition home or self-care (01) | DRG 639 ==
LOC: F3E 12-04 00:42 → OBSVTOIN 12-04 11:19
PROVIDERS: ADMIT Student in an Organized Health Care Education/Training Program; ATTEND Internal Medicine
DX: E11.628 Type 2 diabetes mellitus with other skin complications (principal); L03.032 Cellulitis of left toe; E11.40 Type 2 diabetes mellitus with diabetic neuropathy, unspecified; E11.22 Type 2 diabetes mellitus with diabetic chronic kidney disease; N18.9 Chronic kidney disease, unspecified; I25.10 Atherosclerotic heart disease of native coronary artery without angina pectoris; J44.9 Chronic obstructive pulmonary disease, unspecified; I48.91 Unspecified atrial fibrillation; Z87.891 Personal history of nicotine dependence; Z85.038 Personal history of other malignant neoplasm of large intestine; Z79.4 Long term (current) use of insulin; Z95.1 Presence of aortocoronary bypass graft
CPT/HCPCS: G0378; J0690; J1650; J1815

== ENCOUNTER → 2017-12-29 | Outpatient (CLI) | payer OTHER | LOC: FIMAGING 14:13 | PROVIDERS: ATTEND Family Medicine | DX: R93.0 Abnormal findings on diagnostic imaging of skull and head, not elsewhere classified (principal); R56.9 Unspecified convulsions ==

== ENCOUNTER → 2018-01-04 | Outpatient (CLI) | payer OTHER | LOC: BHFA 11:00 | PROVIDERS: ATTEND Internal Medicine Cardiovascular Disease | DX: I48.91 Unspecified atrial fibrillation (principal) ==

== ENCOUNTER → 2018-01-10 | Outpatient (CLI) | payer OTHER ==
[~2018-01-10] MED LIST: GADOBUTROL 10 ML VIAL IVP ONE
== END ==
LOC: FIMAGING 15:18
PROVIDERS: ATTEND Psychiatry & Neurology Neurology
DX: R60.0 Localized edema (principal); G31.9 Degenerative disease of nervous system, unspecified; I25.2 Old myocardial infarction; J32.9 Chronic sinusitis, unspecified
CPT/HCPCS: 70553; A9585

== ENCOUNTER 2018-01-30 08:10 | Inpatient (IN) | payer OTHER ==
[2018-01-30] MEDS ORDERED: GADOBUTROL 10 ML VIAL IVP ONE (08:42)
[2018-01-30] MEDS ORDERED: LR 1,000 ML IV ONE (09:01)
[2018-01-30] MEDS ORDERED: LIDOCAINE 1% 2 ML INJ ID PRN (09:01)
[2018-01-30] MEDS ORDERED: BUPIVACAINE 0.25% 30 ML SDV ONE (10:48)
[2018-01-30] MEDS ORDERED: BACITRACIN ZINC 14.2 GM OINTTUBE TP ONE (10:48)
[2018-01-30] MEDS ORDERED: THROMBIN (BOVINE) 5,000 UNIT VIAL TP ONE (10:48)
[2018-01-30] MEDS ORDERED: CHLORHEXIDINE GLUC HIBICLENS 118 ML BTL TP ONE (10:48)
[2018-01-30] MEDS ORDERED: POVIDONE-IODINE 30 GM OINTTUBE TP ONE (10:49)
[2018-01-30] MEDS ORDERED: GENTAMICIN SULFATE 80 MG/2 ML VIAL ONE (10:49)
--- NOTE | 2018-01-30 11:29 | PDANEPAE ---
ANE Past Medical History - Cardiovascular History Hx Hypertension: Yes Hx Arrhythmias: Yes Hx Chest Pain: Yes Hx Coronary Artery / Peripheral Vascular Disease: Yes Hx CHF / Valvular Disease: Yes Hx Palpitations: No Cardiovascular History Comment: Afib - Pulmonary History Hx COPD: Yes Hx Asthma/Reactive Airway Disease: No Hx Recent Upper Respiratory Infection: No Hx Oxygen in Use at Home: Yes O2 in Use at Home (L/minute): 2L at night Hx Sleep Apnea: No Sleep Apnea Screening Result - Last Documented: Positive - Neurologic History Hx Cerebrovascular Accident: No Hx Seizures: Yes Hx Dementia: No Neurologic History Comment: new seizures - Endocrine History Hx Diabetes: Yes - Renal History Hx Renal Disorders: Yes Renal History Comment: renal insufficiency - Liver History Hx Hepatic Disorders: No - Neurological & Psychiatric Hx Hx Neurological and Psychiatric Disorders: Yes Neurological / Psychiatric History Comment: neuropathy - Cancer History Hx Cancer: No - Congenital Disorder History Hx Congenital Disorders: No - GI History Hx Gastrointestinal Disorders: No - Other Health History Other Health History: none - Chronic Pain History Chronic Pain: No - Surgical History Prior Surgeries: quadruple bypass june 28 ANE Review of Systems Review of Systems: - Exercise capacity METS (RN): 4 METS ANE Patient History - Allergies Allergies/Adverse Reactions: No Known Allergies Allergy (Verified 01/28/18 13:00) - Home Medications Home Medications: Gemfibrozil [Lopid 600 MG (*)] 600 mg PO DAILY 05/15/17 [Last Taken 01/30/18 07: 30] Aspirin EC [Aspirin EC 81 mg (*)] 81 mg PO HS 12/04/17 [Last Taken 01/25/18] Carvedilol [Coreg (*)] 12.5 mg PO BIDMEAL 12/04/17 [Last Taken 01/29/18] Insulin Aspart [novoLOG] 5 - 15 unit SC TIDMEAL 12/04/17 [Last Taken 01/29/18] Insulin Glargine [Lantus 100 UNITS/ML (*)] 20 - 25 units SC HS 12/04/17 [Last Taken 01/29/18] Torsemide [Demadex] 40 mg PO DAILY@13 12/04/17 [Last Taken 01/29/18] Torsemide [Demadex] 100 mg PO DAILY 12/04/17 [Last Taken 01/29/18] amLODIPine BESYLATE [Norvasc 5 mg (*)] 5 mg PO DAILY 01/28/18 [Last Taken 07:30] levETIRAcetam [Keppra 500 mg (*)] 500 mg PO BID 01/28/18 [Last Taken 01/30/18 07 :30] - NPO status NPO Since - Liquids (Date): 01/30/18 NPO Since - Liquids (Time): 07:30 NPO Since - Solids (Date): 01/29/18 NPO Since - Solids (Time): 20:00 - Anes Hx Anes Hx: no prior problems - Smoking Hx Smoking Status: Former smoker - Family Anes Hx Family Hx Anesthesia Complications: none ANE Labs/Vital Signs - Vital Signs Blood Pressure: 145/78 Heart Rate: 76 Respiratory Rate: 16 O2 Sat (%): 95 Height: 179.07 cm Weight: 104.326 kg ANE Physical Exam - Airway Neck exam: FROM Mallampati Score: Class 2 Mouth exam: normal dental/mouth exam - Pulmonary Pulmonary: no respiratory distress, reduced air movement - Cardiovascular Cardiovascular: regular rate and rhythym - ASA Status ASA Status: III ANE Anesthesia Plan Anesthesia Plan: general endotracheal anesthesia
[2018-01-30] MEDS ORDERED: ceFAZolin 2 GM/SWFI 2 GM/20 ML SYR IVP ONE (11:30)
[2018-01-30] MEDS ORDERED: fentaNYL 100 MCG/2 ML INJ ONE ×2 (11:42→14:01)
[2018-01-30] MEDS ORDERED: PROPOFOL 200 MG/20 ML VIAL ONE (11:42)
[2018-01-30] MEDS ORDERED: ROCURONIUM 50 MG/5 ML VIAL ONE (12:02)
[2018-01-30] MEDS ORDERED: LIDOCAINE 2% 5 ML SDV ONE ×2 (12:02→13:25)
[2018-01-30] MEDS ORDERED: PHENYLEPHRINE HCL 100 MCG/ML SYR ONE (12:02)
[2018-01-30] MEDS ORDERED: ONDANSETRON 4 MG/2 ML VIAL ONE (12:02)
[2018-01-30] MEDS ORDERED: SUGAMMADEX SODIUM 200 MG/2 ML VIAL IVP ONE (12:09)
[2018-01-30] MEDS ORDERED: PROMETHAZINE HCL 25 MG/ML INJ IVP PRN (13:06)
[2018-01-30] MEDS ORDERED: LABETALOL HCL 5 MG/ML 20 ML MDV IVP PRN (13:06)
[2018-01-30] MEDS ORDERED: LR 500 ML IV PRN (13:06)
[2018-01-30] MEDS ORDERED: HYDROCODONE/APAP 5/325 TAB PO PRN (13:06)
[2018-01-30] MEDS ORDERED: NALOXONE HCL 0.4 MG/ML INJ IVP PRN (13:06)
[2018-01-30] MEDS ORDERED: ONDANSETRON 4 MG/2 ML VIAL IVP PRN (13:06)
--- NOTE | 2018-01-30 13:41 | POSTOPPROG ---
Post Op Note Date of Operation: 01/30/18 Surgeon: Franki Nichols Flare Stitcher: none Anesthesia: GET(General Endotracheal) Pre-op Diagnosis: left frontal brain lesion Post-op Diagnosis: same Indication: left frontal brain lesion Procedure: left frontal crani for brain biopsy Findings: successful brain biopsy Inf/Abcess present in the surg proc area at time of surgery?: No EBL: Minimal Total fluids administered: per anesthesia record Complications: none Specimen(s): left frontal brain biopsy (frozen and permanent)
[2018-01-30] MEDS ORDERED: BISACODYL 10 MG SUPP PR PRN (13:43)
[2018-01-30] MEDS ORDERED: LACTULOSE 20 GM/30 ML UDCUP PO PRN (13:43)
[2018-01-30] MEDS ORDERED: POLYETHYLENE GLYCOL 3350 17 GM PKT PO PRN (13:43)
[2018-01-30] MEDS ORDERED: MAGNESIUM HYDROXIDE 30 ML UDCUP PO PRN (13:43)
[2018-01-30] MEDS ORDERED: D50W 25 GM/50 ML SYR IVP PRN (13:49)
--- NOTE | 2018-01-30 13:50 | POSTANESTH ---
Post Anesthetic Evaluation Cardiovascular Status: Normal, Stable, Similar to Pre-Op Cond Respiratory Status: Normal, Stable, Similar to Pre-op Cond. Level of Consciousness/Mental Status: Can Participate in Eval, Mildly Sleepy, Arousable Pain Control: Adequate, Prn Tx Ordered Nausea/Vomiting Control: Adequate, Prn Tx Ordered Complications Possibly Related to Anesthesia: None Noted
[2018-01-30] MEDS: fentaNYL 100 MCG/2 ML INJ IVP PRN ×2 (14:01→14:10)
[2018-01-30] MEDS ORDERED: HYDROCODONE/APAP 5/325 TAB ONE (14:09)
[2018-01-30] MEDS ORDERED: LABETALOL HCL 5 MG/ML 20 ML MDV ONE (14:09)
[2018-01-30] MEDS: NS W/ 20 KCl/L 1,000 ML IV SCH (15:22)
[2018-01-30] MEDS: HYDROCODONE/APAP 10/325 TAB PO PRN ×2 (16:41→19:51)
[2018-01-30] MEDS: CARVEDILOL 25 MG TAB PO SCH (18:12)
[2018-01-30] MEDS: INSULIN LISPRO 100 UNIT/ML SC SCH (18:12)
[2018-01-30] MEDS: levETIRAcetam 500 MG TAB PO SCH (19:51)
[2018-01-30] MEDS: SENNOSIDES/DOCUSATE SODIUM TAB PO SCH (19:52)
[2018-01-30] MEDS: ONDANSETRON 4 MG/2 ML VIAL IVP PRN (20:18)
[2018-01-31] MEDS: HYDROCODONE/APAP 10/325 TAB PO PRN (00:46)
[2018-01-31] MEDS: ONDANSETRON 4 MG/2 ML VIAL IVP PRN (03:06)
[2018-01-31] MEDS: NS W/ 20 KCl/L 1,000 ML IV SCH (03:20)
--- NOTE | 2018-01-31 07:57 | SOAPPROG ---
SOAP Progress Note Assessment/Plan: Assessment: 72 yo F POD #1 left frontal brain biopsy Plan: neuro: stable and doing well overall :) PT/OT on keppra zofran for nausea did require some norco last night will remove pin site staple try to dc home later today please call with neuro changes discussed with Dr Nichols 01/31/18 07:55 Subjective: mild headaches, some nausea last night, no emesis. Objective: Vital Signs Temp Pulse Resp BP Pulse Ox 36.6 C 78 16 165/91 H 94 01/30/18 23:00 01/31/18 06:00 01/31/18 06:00 01/31/18 06:00 01/31/18 06:00 01/30/18 01/31/18 02/01/18 05:59 05:59 05:59 Intake Total 2275 Output Total 1355 Balance 920 AAOx4, +FC PERRL, EOMI, no facial droop MADAI x 4 + light touch C/D/I ICD10 Worksheet Patient Problems: Problems Problem Status Onset HERBIE (acute kidney injury) Acute Acute exacerbation of congestive heart failure Acute Bowel obstruction Acute CAD, multiple vessel Acute Chronic Disease Mgmt/Transitional Care Acute Diabetic foot infection Acute Postoperative atrial fibrillation Acute S/P CABG x 4 Acute ~06/28/17 S/P thoracotomy Acute ~07/11/17 CKD (chronic kidney disease) Chronic Diabetes mellitus Chronic
--- NOTE | 2018-01-31 08:31 | GOP ---
[f rep st] OPERATIVE REPORT DATE OF OPERATION: 01/30/2018 SURGEON: Franki Nichols MD NEUROSURGEON: Franki Nichols MD. SOCIAL DIRECTOR: None. PREOPERATIVE DIAGNOSIS: Left frontal brain lesion. POSTOPERATIVE DIAGNOSIS: Left frontal brain lesion. PROCEDURE PERFORMED: 1. Left frontal craniotomy for biopsy of left frontal lesion. 2. Use of the operative microscope. 3. Stealth stereotactic navigation for brain biopsy. FINDINGS: SPECIMENS: Left frontal brain tissue for permanent and frozen section. ESTIMATED BLOOD LOSS: 25 cc. The hair was washed and sterile dressings were placed. The patient was awakened in the operating genevieve m, transferred to the PACU in stable condition. There were no operative complications. I was scrubb ed and present for the entire procedure. INDICATIONS: The patient is a 72-year-old man who had a seizure a month or so ago. He was found to have some T2 signal in the left frontal region extending into the white matter adjacent to the ventri kelly. He was seen by Dr. Kenney, who after a repeat MRI found this lesion to be growing. We were asked to see him for a possible biopsy given the unknown nature of this lesion. He presents today elective ly for this procedure. Of note, on his stereotactic MRI of today, the lesion has grown larger yet. DESCRIPTION OF PROCEDURE: After informed consent was obtained from the patient, the patient was brou ght to the operating room, was placed in the supine position on the operating table. A formal time-o ut was performed, identifying the patient by name, medical record number and date of . Preopera tive antibiotics were given. The endotracheal tube was placed and general endotracheal anesthesia wa s smoothly induced. The patient's head was placed in the Vasquez pins and turned slightly toward th e right side. The Stealth unit was then registered to the scalp and checked for accuracy using known surface landmarks. This was used to plan a curvilinear left frontal incision behind the hairline th at would give good access to this lesion. At this point, the head was prepped and draped in the norm al sterile fashion. 10 cc of 0.25% Marcaine with epinephrine was infiltrated in the skin for hemosta sis. A skin incision was then made using a 10 blade and the subcutaneous tissues were dissected usin g monopolar electrocautery. Laurie clips were placed for hemostasis. The skin flap was retracted ant eriorly. The temporalis muscle and its fascia were opened using the Bovie, and the muscle was retrac abebe out of the way. Again, our landmarks were checked using the stereotaxis, such that we would have a large enough craniotomy for the brain biopsy. At this point, a single bur hole was created in the temporal region and the craniotome was used to turn a roughly 2.5 x 2.5 cm craniotomy flap. All ble eding was controlled with bipolar electrocautery and Gelfoam. Next, the dura was opened in a cruciate fashion and the brain was inspected. The operative microscop e was brought on the field and the remainder of the procedure was performed under high-power magnific ation. In the anterior frontal region, the cortical surface seemed darkened and slightly necrotic. A sulcus with a larger artery was carefully dissected, and the artery was moved out of the way. This abnormal brain was then entered, and a 1 cm cubic region of this was taken for a permanent section b iopsy. A few smaller pieces were taken for frozen section, which returned as abnormal tissue but non diagnostic of neoplasm or inflammatory lesion by the frozen pathology. At this point, all the bleedi ng was controlled using bipolar electrocautery and Gelfoam. There was no further bleeding from the b rain. The wound was copiously irrigated using gentamicin irrigation. The dura was then tacked close d using interrupted 4-0 Nurolon. The craniotomy flap was plated back in place using Synthes titanium plates and screws. The temporalis muscle and its fascia were closed using interrupted 2-0 Vicryl. The galea was closed using interrupted 2-0 Vicryl. The skin was closed using a running 4-0 Monocryl. COUNTS: All sponge and needle counts were correct at the end of the case. URINE OUTPUT: In the anesthesia record. FLUIDS: In the anesthesia record. DRAINS: There were no drains. /[id number]/MODL
[2018-01-31] MEDS: levETIRAcetam 500 MG TAB PO SCH (08:44)
[2018-01-31] MEDS: CARVEDILOL 25 MG TAB PO SCH (08:44)
[2018-01-31] MEDS: INSULIN LISPRO 100 UNIT/ML SC SCH ×2 (08:44→12:54)
[2018-01-31] MEDS: SENNOSIDES/DOCUSATE SODIUM TAB PO SCH (08:44)
[2018-01-31] MEDS ORDERED: GEMFIBROZIL 600 MG TAB PO SCH (09:00)
[2018-01-31] MEDS ORDERED: amLODIPine BESYLATE 5 MG TAB PO SCH (09:00)
--- NOTE | 2018-01-31 09:48 | PDMN ---
Medical Necessity Medical necessity: Pt meets IP criteria; [facility] IP only surgery CPT 67958 Craniotomy
[2018-01-31] MEDS ORDERED: TORSEMIDE 20 MG TAB PO SCH ×2 (10:00→13:00)
[2018-01-31] MEDS: HEPARIN 5,000 UNIT/0.5 ML SYR SC SCH ×2 (13:59→14:05)
[2018-01-31 15:39] VITALS: BP 161/83; PULSE 76; RESP 14; TEMP 97.6; O2SAT 95
--- NOTE | 2018-01-31 16:25 | ASMTCMCOM ---
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 Pt medically stable for d/c w support of spouse. No CM d/c needs identified. Date Signed: 01/31/2018 04:24 PM Electronically Signed By:POLLO Mccoy
== END 2018-01-31 16:44 | disposition home or self-care (01) | DRG 27 ==
LOC: F3N 08:32 → F2N 14:52 → F3N 01-31 10:07
PROVIDERS: ADMIT Neurological Surgery; ATTEND Neurological Surgery
PROC: 00B00ZX Excision of Brain, Open Approach, Diagnostic (ICD-10-PCS; principal; 2018-01-30 11:00)
DX: D49.6 Neoplasm of unspecified behavior of brain (principal); R56.9 Unspecified convulsions; I48.0 Paroxysmal atrial fibrillation; E11.9 Type 2 diabetes mellitus without complications; I25.10 Atherosclerotic heart disease of native coronary artery without angina pectoris; I10 Essential (primary) hypertension; Z85.038 Personal history of other malignant neoplasm of large intestine; Z79.4 Long term (current) use of insulin; Z95.1 Presence of aortocoronary bypass graft
CPT/HCPCS: 92523-GN; 97116-GP; 97161-GP; 97166-GO; A9585; C1713; G0463-PO; G8978-GP-CJ; G8979-GP-CH; G8987-GO-CI; G8988-GO-CI; G8989-GO-CI; G9165-GN-CH; G9166-GN-CH; G9167-GN-CH; J0171; J0690; J1580; J1644; J1815; J2370; J2405; J2704; J3010

== ENCOUNTER → 2018-03-05 | Outpatient (CLI) | payer OTHER | LOC: FIMAGING 13:58 | PROVIDERS: ATTEND Physician Assistant | DX: D49.6 Neoplasm of unspecified behavior of brain (principal); G04.90 Encephalitis and encephalomyelitis, unspecified | CPT/HCPCS: 70553; A9585 ==

== ENCOUNTER → 2018-04-12 | Outpatient (CLI) | payer OTHER | LOC: FIMAGING 15:02 | PROVIDERS: ATTEND Family Medicine | DX: R22.42 Localized swelling, mass and lump, left lower limb (principal); M79.605 Pain in left leg; R59.0 Localized enlarged lymph nodes; Z85.038 Personal history of other malignant neoplasm of large intestine ==

== ENCOUNTER 2019-03-30 19:00 | Emergency (ER) | payer OTHER ==
--- NOTE | 2019-03-30 19:47 | EDPHY ---
H & P Stated Complaint: Diabetic, 3 blisters on L foot, concerned Time Seen by Provider: 03/30/19 19:08 HPI/ROS: CHIEF COMPLAINT: Right toe blisters HISTORY OF PRESENT ILLNESS: 73-year-old male with diabetes presents with right 1st toe blisters and erythema. Just prior to arrival, he took off his shoes and noticed that his big toe was dusky and had blood blisters. Denies any injury and denies toe pain. No prior similar symptoms. ROS: No numbness, weakness, excessive bleeding, syncopal episode, other injury. - Personal History Current Tetanus Diphtheria and Acellular Pertussis (TDAP): Yes - Medical/Surgical History Hx Asthma: No Hx Chronic Respiratory Disease: Yes Hx Diabetes: Yes Hx Cardiac Disease: Yes Hx Renal Disease: Yes Hx Cirrhosis: No Hx Alcoholism: No Hx HIV/AIDS: No Hx Splenectomy or Spleen Trauma: No Other PMH: DM, CHF, L thoracotomy 2005, necrotizing fascitis 2005, right inner thigh surgery, nasal fibroma removal, tonsillectomy, right knee arthroscopy, HTN , colon cancer & resection 2016, OPEN HEART 06/2017, PLEURAL EFFUSION, NEUROPATHY , CHRONIC KIDNEY DISEASE - Social History Smoking Status: Former smoker - Physical Exam Exam: Alert and oriented, pleasant Extremities: Left 1st toe- ecchymosis of the proximal phalynx, especially laterally, erythema in between areas around ecchymotic areas, multiple hemorrhagic blisters present on dorsal aspect of phalynx, distal phalynx is normal in appearance, cap refill brisk Skin: intact Neuro: Motor and sensory intact Vascular: Capillary refill brisk distally, dorsalis pedis pulse 2 + Constitutional: Initial Vital Signs Temperature (C) 36.7 C 03/30/19 19:04 Heart Rate 76 03/30/19 19:04 Respiratory Rate 16 03/30/19 19:04 Blood Pressure 156/76 H 03/30/19 19:04 O2 Sat (%) 96 03/30/19 19:04 O2 Delivery Mode Room Air Allergies/Adverse Reactions: aspirin Allergy (Verified 03/30/19 19:04) Rhaqziv-Rkd-Iuo Reductase Inhibitor Allergy (Verified 03/30/19 19:04) Home Medications: Medication Instructions Recorded Gemfibrozil [Lopid 600 MG (*)] 600 mg PO DAILY 05/15/17 Carvedilol [Coreg (*)] 12.5 mg PO BIDMEAL 12/04/17 Insulin Aspart [novoLOG] 5 - 15 unit SC TIDMEAL 12/04/17 Insulin Glargine [Lantus 100 20 - 25 units SC HS 12/04/17 UNITS/ML] Torsemide [Demadex] 40 mg PO DAILY@13 12/04/17 Torsemide [Demadex] 100 mg PO DAILY 12/04/17 amLODIPine BESYLATE [Norvasc 5 mg 5 mg PO DAILY 01/28/18 (*)] levETIRAcetam [Keppra 500 mg (*)] 500 mg PO BID 01/28/18 HYDROcodone/APAP 10/325 [[place] 1 - 2 tab PO Q6HRS PRN tab 01/31/18 10/325 (*)] Ondansetron HCl Pf [Zofran 4 mg 4 mg IVP Q4HRS PRN vial 01/31/18 Inj (*)] Aspirin EC [Aspirin EC 81 mg (*)] 81 mg PO HS #0 02/04/18 Cephalexin [Keflex (*)] 500 mg PO TID #30 cap 03/30/19 Medical Decision Making - Diagnostics Imaging Results: Xray: no fx Imaging: I viewed and interpreted images myself ED Course/Re-evaluation: This pt presents with cellulitis and bruising of toe. Considered possibility of vascular compromise, but involvement of proximal phalynx only suggests traumatic injury. Requests abx and d/c home. Ultimately agrees to Xray and abx. Xray reveals a nondisplaced proximal phalanx fracture. Keflex 500mg orally given. Placed in a post op shoe. f/u with PCP. Differential Diagnosis: Includes though not limited to vascular compromise, necrotizing fasciitis, osteomyelitis - Data Points Medications Given: Discontinued Medications Cephalexin HCl (Keflex) 500 mg PO EDNOW ONE PRN Reason: Protocol Stop: 03/30/19 20:10 Last Admin: 03/30/19 20:22 Dose: 500 mg Departure - Departure Disposition: Home, Routine, Self-Care Clinical Impression: Cellulitis Qualifiers: Site of cellulitis: extremity Site of cellulitis of extremity: lower extremity Laterality: left Qualified Code(s): L03.116 - Cellulitis of left lower limb Toe fracture Qualifiers: Encounter type: initial encounter Toe: great toe Fracture type: closed Phalanx : proximal Fracture alignment: nondisplaced Laterality: left Qualified Code(s): S92.415A - Nondisplaced fracture of proximal phalanx of left great toe, initial encounter for closed fracture Condition: Fair Instructions: Cellulitis (ED), Toe Fracture (ED) Additional Instructions: Keep your foot elevated whenever possible. Take antibiotics as prescribed. Followup tomorrow for recheck. Referrals: Jean Davenport MD [Primary Care Provider] - As per Instructions Isaiah Munoz MD [Medical Doctor] - As per Instructions (Call to make an appointment tomorrow morning.) Prescriptions: Cephalexin [Keflex (*)] 500 mg PO TID #30 cap
[2019-03-30] MEDS ORDERED: CEPHALEXIN 500 MG CAP PO ONE (20:09)
[2019-03-30 20:33] VITALS: BP 132/61
== END 2019-03-30 20:33 | disposition home or self-care (01) ==
DX: L03.116 Cellulitis of left lower limb (principal); S92.415A Nondisplaced fracture of proximal phalanx of left great toe, initial encounter for closed fracture; E11.9 Type 2 diabetes mellitus without complications
CPT/HCPCS: 73630; 99283; L4386